=== PATIENT | male | born 1945 | race Caucasian/White ===

== ENCOUNTER 2020-11-15 08:45 | Outpatient (RCR) | payer MEDICARE, SELFPAY ==
[2020-11-08 08:08] VITALS: BP 126/81; PULSE 62; RESP 18; TEMP 36.4; BMI 41.6
--- NOTE | 2020-11-08 13:33 | HP.PCM_ITS ---
History of Present Illness Date of Service: 11/08/20 Chief Complaint: Ulceration of the left lateral foot History of Wound: This is a 75-year-old male who presents with an ulceration on the lateral aspect of his left foot. Has been present for approximately 2 weeks. However, the patient has previously had an ulcer at this site in the past. He has been treated at our facility for such. His previous ulceration was healed by conservative means. Patient is ambulatory. He experiences swelling and edema in his lower extremities bilaterally, which is worse by the end of the day. He claims to sleep in a recliner. Medical history includes chronic obstructive pulmonary disease, congestive heart failure, hypertension, chronic venous insufficiency, obesity, and epilepsy. The patient is also known to be oxygen dependent, using 3 L of oxygen per nasal cannula as a baseline, and sometimes even higher amounts. Review of the patient's past records reveals a noninvasive lower extremity arterial study in 2013 which revealed no evidence of arterial occlusive disease in the patient's lower extremities. Of note, the patient underwent bilateral lower extremity venous procedures in 2017, though he has no recollection of what procedures were performed, nor the physician who performed them. Patient has also undergone prior bilateral knee replacement surgeries, and several lumbar disc surgeries in the past. The patient claims to possess graduated compression stockings, which he has not been wearing recently. He is uncertain as to the degree of compression. [facility] Medical History (Updated 11/08/20 @ 13:[address] Brady Aguilar MD) CHF (congestive heart failure) Chronic venous insufficiency COPD (chronic obstructive pulmonary disease) Hancock phlebectatica paraplantaris Epilepsy Leg edema Leg swelling Morbid obesity with BMI of 40.0-44.9, adult Oxygen dependent Venous ulcer of ankle Home Medications B complex with C 20-folic acid [Nephrocaps Softgel] 1 mg PO DAILY 12/04/13 [History Last Taken Unknown] aspirin 325 mg PO DAILY 12/04/13 [History Last Taken Unknown] naproxen sodium [Naprelan CR] 500 mg PO Q6H PRN PRN 12/04/13 [History Last Taken Unknown] phenytoin sodium extended 600 mg PO TID 12/04/13 [History Last Taken Unknown] sertraline 100 mg PO DAILY 12/04/13 [History Last Taken Unknown] timolol maleate 1 drp EACH EYE BID 12/04/13 [History Last Taken Unknown] budesonide [Pulmicort Flexhaler 90 mcg] 1 puff INHALATION BID 03/15/17 [History Last Taken Unknown] carvedilol [Coreg] 6.25 mg PO BID 03/15/17 [History Last Taken Unknown] cholecalciferol (vitamin D3) [Vitamin D3] 1,000 unit PO DAILY 03/15/17 [History Last Taken Unknown] gemfibrozil 600 mg PO BIDAC 03/15/17 [History Last Taken Unknown] melatonin 3 mg PO PRN PRN 03/15/17 [History Last Taken Unknown] oxycodone-acetaminophen 1 tab PO PRN PRN 03/15/17 [History Last Taken Unknown] sildenafil [Viagra] 100 mg PO PRN PRN 03/15/17 [History Last Taken Unknown] spironolactone 50 mg PO DAILY 03/15/17 [History Last Taken Unknown] torsemide [Demadex] 40 mg PO DAILY 03/15/17 [History Last Taken Unknown] sertraline 100 mg PO DAILY 11/08/20 [History Last Taken Unknown] Allergy/AdvReac Type Severity Reaction Status Date / Time silver sulfadiazine Allergy Severe Rash and Verified 01/25/14 09:47 swelling adhesive Allergy Rash Verified 03/15/17 11:26 Social History Smoking Status: Former smoker Vital Signs Vital Signs Vital Signs: 11/08/20 08:08 Temperature 97.5 F L Temperature Source Temporal Pulse Rate 62 Respiratory Rate 18 Blood Pressure 126/81 H Blood Pressure Mean 96 Blood Pressure Source Monitor Blood Pressure Position Sitting Blood Pressure Location Right Arm Oxygen Delivery Method Nasal Cannula Oxygen Flow Rate (L/min) 3 Weight Weight: 270 lb Body Mass Index (BMI) 41.6 Physical Exam Const alert, oriented x3, no apparent distress and well nourished General Appearance: cooperative, comfortable and well developed Orientation / Consciousness: awake, oriented to person, oriented to place and oriented to time HEENT normocephalic and head/scalp atraumatic Head and Scalp: normal to inspection, normocephalic and atraumatic External Ear: external ears normal Eyes PERRL and EOMs intact bilaterally General Eye: normal appearance of both eyes Neck supple Resp normal respiratory effort, normal air movement, no retractions and no use of accessory muscles Effort and Inspection: able to speak in complete sentences Extremity no calf tenderness Extremity Narrative: Mild swelling and edema are noted in the patient's lower extremities bilaterally. Hancock phlebectatica is noted bilaterally near the medial malleoli bilaterally. Mild, erythematous inflammatory changes are noted at calf level bilaterally. General Extremity: Negative for clubbing or cyanosis Skin Wound Narrative: A wound is noted on the left lateral foot, just inferior to the left lateral malleolus. Dimensions are documented elsewhere. There is no sign of infection or cellulitis. There is a small amount of bioburden. Neuro oriented x3, CN's II-XII intact bilaterally and moves all extremities Sensorium / Orientation: awake, alert, oriented to person, oriented to place and oriented to time Speech: speech normal Psych Appearance: grossly normal and appropriate Attitude: calm and engaged Activity / Motor Behavior: appropriate eye contact Speech: normal speech Mood & Affect: euthymic mood Thought Process: normal thought process Debridement Note Debridement Note Post-Debridement Measurements and Additional Note: Post-Debridement Measurements/Treatment KAZ - Nurse 1 - General Ulcer Assessment Start: 11/08/20 08:08 Freq: Status: Active Protocol: REUBEN Activity Type Activity Date Activity User E-Sign Co-Sign Detail Recorded Client Recorded Date Recorded By Document 11/08/20 08:08 MW [id number] 11/08/20 08:31 MW 11/08/20 08:08 - Today's Visit Information Type of service Initial Visit Arrival Mode Ambulatory Transfer Assistance None Accompanied by self Patient Identification Verified (Name & Yes ) Patient Requires Transmission-Based No Precautions Safety Precautions NA Height and Weight Height 5 ft 7.5 in Weight 270 lb Weight in Pounds 270.0 lbs Weight Measurement Method Estimated by Patient Body Mass Index (BMI) 41.6 BMI Classification Obese BSA - Lexy 2.31 Vital Signs Temperature (97.8 F-99.1 F) 97.5 F L Temperature Source Temporal Pulse Rate (60-100) 62 Pulse Location Monitor Respiratory Rate (12-18) 18 Respiratory rate source Observation Oxygen Delivery Method Nasal Cannula O2 L/MIN 3 Blood Pressure (90/60-120/80) 126/81 H Blood Pressure Mean 96 Source Monitor Position Sitting Blood Pressure Location Right Arm Pain Scale: 0-10 Numeric Is Patient Pain Free? No Lower Extremity Assessment/ Foot Assessment/ Toe Nail Assessment Right -Polpliteal Pulses Palpable No -Popliteal Doppler Multiphasic -Posterior Tibial Palpable No -Posterior Tibial Doppler Inaudible -Dorsalis Pedis Palpable No -Extremity Color Normal -Hair Growth on Legs No -Hair Growth on Toes No -Temperature of Extremity Warm -Capillary Refill Less than 3 Seconds -Dependent Rubor No -Lipodermatosclerosis No -Other Deformity No -Prior Foot Ulcer No -Charcot Joint No -Prior Amputation No -Thick No -Discolored No -Deformed No -Improper Length & Hygeine No Left -Posterior Tibial Palpable Yes -Posterior Tibial Doppler Multiphasic -Dorsalis Pedis Palpable Yes -Dorsalis Pedis Doppler Multiphasic -Extremity Color Normal -Hair Growth on Legs No -Hair Growth on Toes No -Temperature of Extremity Warm -Capillary Refill Less than 3 Seconds -Dependent Rubor No -Lipodermatosclerosis No -Other Deformity No -Prior Foot Ulcer No -Charcot Joint No -Prior Amputation No -Thick No -Discolored No -Deformed No -Improper Length & Hygeine No Communication Assessment Preferred language Bahamian Credit Analysis Manager Required No Able to Read Yes Able to Write Yes Communication Tools None Caregiver Communication Skills No Impairment Impairment Right Hearing Abillity Hard of Hearing Left Hearing Abillity Hard of Hearing Visual Assistive Devices Glasses Teaching Assessment Preferences Verbal,Written Barriers to Learning None Readiness To Learn Excellent Willingness to Engage in Self Management High Activies Readiness to Engage in Self Management High Activities Anxiety Level Calm Cooperation Cooperative Perception Coherent Interest in Health Problem Asks Questions Education Importance Acknowledges Need Does Patient Smoke tobacco or other No substances Smoking Status Former smoker Is Patient Diabetic No Functional Assessment Recent Decline in Ability to Perform Denies Any Declines Assistive Device With Patient No Culture/Caodaism/Assistant Plant Manager Cultural/Caodaism Needs that may affect No Treatment Plan Would you allow our hospital candy department manager to No meet you for the purpose of spiritual/ emotional support? Assistant Plant Manager to contact place of gnosticism No WC - Nurse 1 - General Ulcer Measurement Start: 11/08/20 08:08 Freq: Status: Active Protocol: Activity Type Activity Date Activity User E-Sign Co-Sign Detail Recorded Client Recorded Date Recorded By Document 11/08/20 08:08 MW [id number] 11/08/20 08:31 MW 11/08/20 08:08 Wound Center Nurse 1 #2 left lateral foot -Combined with other wound No -Current Size (cm) - Length 1.4 -Current Size (cm) - Width 1.5 -Current Size (cm) - Depth 0.1 -Total Square Cm 2.10 -Photo Taken No -Epithelialization None Present -Tunneling No -Undermining/Tunneling No -Circular Undermining No -Exudate Amt Medium -Exudate Type Serosanguineous -Wound Margin Flat & Intact -Granulation Amt None Present (0 %) -Granulation Quality N/A -Slough/Fibrin Yes -Necrosis Amt Large (67-100%) -Necrotic Tissue Type Adherent Slough -Structure Exposed N/A -Texture (Patti-wound Skin Appearance) Assessed, Localized Edema ,Scarring -Moisture (Patti-wound Skin Appearance) Assessed, Maceration -Color (Patti-wound Skin Appearance) Assessed, Hemosiderin Staining -Temperature (Patti-wound Skin No Abnormality Appearance) (Pt Warm) -Tenderness on Palpation (Patti-wound No Skin Appearance) -Ulcer Cleansing Rinsed/ Irrigated with Saline -Foul Odor after Cleansing No -Anesthetic Used 4% Lidocaine Solution Lower Limb Edema Present Yes Right Calf (cm) 44.0 Right Ankle (cm) 26.0 Left Calf (cm) 44.5 Left Ankle (cm) 24.5 WC - Nurse 2 - General Ulcer CM Notes Start: 11/08/20 08:08 Freq: Status: Active Protocol: Activity Type Activity Date Activity User E-Sign Co-Sign Detail Recorded Client Recorded Date Recorded By Document 11/08/20 10:05 [email or web address] [id number] 11/08/20 10:07 MAHENDRA 11/08/20 10:05 Wound Center Nurse 2 #2 left lateral foot -Time 09:00 -Correct Patient Yes -Correct Side, Site, Position Yes -Correct Procedure Yes -Procedure Performed Yes -Type of Procedure Debridement -Clinical Debridement Subcutaneous -Tissue Removed Subcutaneous -Post Debridement (cm) - Length 1.4 -Post Debridement (cm) - Width 1.5 -Post Debridement (cm) - Depth 0.1 -Total Square (Post) (cm) 2.10 -Area of Debridement (cm) - Length 1.4 -Area of Debridement (cm) - Width 1.5 -Total Square (Area) (cm) 2.10 -Tunneling No -Undermining/Tunneling No -Circular Undermining No -Wound/Ulcer Outcome Not Healed -Ulcer Cleansing Rinsed/ Irrigated with Saline -Foul Odor after Cleansing No -Bioengineered Tissue No -Debridement - Subq, 1st 20sq cm Yes Pain Scale: 0-10 Numeric Is Patient Pain Free? Yes WC - Nurse 3 - General Ulcer D/C NN Start: 11/08/20 08:08 Freq: Status: Active Protocol: Activity Type Activity Date Activity User E-Sign Co-Sign Detail Recorded Client Recorded Date Recorded By Document 11/08/20 09:17 LIZZ [id number] 11/08/20 09:17 LIZZ 11/08/20 09:17 Wound Care Nurse 3 #2 left lateral foot -Ulcer Cleansing Rinsed/ Irrigated with Saline -Primary Dressing Applied C Hydrogel ($) -Primary Dressing Covered/Secured with Dry Gauze, Secured with Tape WC - Visit Discharge Discharge Condition Stable Ambulatory Status Ambulatory Transportation Private Auto Accompanied by self Wound debrided: Left lateral malleolus Laterality: Left Type of Debridement: Excisional debridement Anesthesia Used: 5% Lidocaine Gel Depth: Down to and including healthy tissue and in the subcutaneous layer Percentage of wound debrided: 100 Instrument Used: 5mm curette Tissue Removed: Bioburden Severity: Fat Layer Exposed Amount of bleeding with debridement: Mild Bleeding Controlled with: Compression and gauze Patient tolerated procedure: Patient tolerated procedure well Assessment/Plan Assessment/Plan (1) Venous ulcer of ankle: CODE(S): I83.003 - Varicose veins of unspecified lower extremity with ulcer of ankle; L97.309 - Non-pressure chronic ulcer of unspecified ankle with unspecified severity (2) Chronic venous insufficiency: CODE(S): I87.2 - Venous insufficiency (chronic) (peripheral) (3) Hancock phlebectatica paraplantaris: CODE(S): R09.89 - Other specified symptoms and signs involving the circulatory and respiratory systems (4) Leg swelling: CODE(S): M79.89 - Other specified soft tissue disorders (5) Leg edema: CODE(S): R60.0 - Localized edema (6) COPD (chronic obstructive pulmonary disease): CODE(S): J44.9 - Chronic obstructive pulmonary disease, unspecified (7) Oxygen dependent: CODE(S): Z99.81 - Dependence on supplemental oxygen (8) CHF (congestive heart failure): CODE(S): I50.9 - Heart failure, unspecified (9) Epilepsy: CODE(S): G40.909 - Epilepsy, unspecified, not intractable, without status epilepticus (10) Morbid obesity with BMI of 40.0-44.9, adult: CODE(S): E66.01 - Morbid (severe) obesity due to excess calories; Z68.41 - Body mass index [BMI]40.0-44.9, adult PLAN: This is a 75-year-old male who presents with an ulceration on the lateral aspect of his left foot. He has had prior ulcerations at the site in the past. They are thought to be related to the patient's chronic venous disease. Patient experiences swelling and edema in both lower extremities. He sleeps in a recliner. We are to implement conservative treatment measures relative to the patient's chronic venous disease and lower extremity swelling and edema. Patient has been advised to elevate his lower extremities as much as possible. Elevation is to be to heart level, or higher. This is to be achieved as much as possible. The patient has been encouraged to sleep on a flat mattress at night. He has been encouraged to elevate his lower extremities as much as possible even during daytime hours. Activity has been encouraged. Prolonged idle sitting and standing has been discouraged. Weight loss has been recommended. Patient claims to own graduated compression stockings, though has not been wearing them recently. He is also unaware of the degree of compression. He has been encouraged to bring the graduated compression stockings with him to subsequent appointments, as well as the associated packaging. We will attempt to ascertain the degree of compression, and prescribe appropriate compression if necessary. We are to use collagen hydrogel topically to the ulceration on the left lateral foot. We will also obtain a noninvasive lower extremity arterial study and a venous duplex examination on an outpatient basis in the near future. Patient is to return in 1 week for reevaluation. The patient is also been advised to assure that his shoes are fitted properly, and that there is no pressure or friction from his shoes that may be contributing to the development of ulcerations on his foot. Total time: 65 minutes
[2020-11-15 08:12] VITALS: BP 139/66; PULSE 63; TEMP 36.1; BMI 41.6
--- NOTE | 2020-11-15 08:34 | HP.PCM_ITS ---
History of Present Illness Date of Service: 11/15/20 Chief Complaint: Ulceration of the left lateral foot History of Wound: This is a 75-year-old male who presented with an ulceration on the lateral aspect of his left foot, just inferior to his left lateral malleolus. Had been present for approximately 2 weeks. However, the patient has previously had an ulcer at this site in the past. He has been treated at our facility for such. His previous ulceration was healed by conservative means. Patient is ambulatory. He experiences swelling and edema in his lower extremities bilaterally, which is worse by the end of the day. He claims to sleep in a recliner. Medical history includes chronic obstructive pulmonary disease, congestive heart failure, hypertension, chronic venous insufficiency, obesity, and epilepsy. The patient is also known to be oxygen dependent, using 3 L of oxygen per nasal cannula as a baseline, and sometimes even higher amounts. Review of the patient's past records reveals a noninvasive lower extremity arterial study in 2013 which revealed no evidence of arterial occlusive disease in the patient's lower extremities. Of note, the patient underwent bilateral lower extremity venous procedures in 2017, though he has no recollection of what procedures were performed, nor the physician who performed them. Patient has also undergone prior bilateral knee replacement surgeries, and several lumbar disc surgeries in the past. The patient claims to possess graduated compression stockings, which he has not been wearing recently. He is uncertain as to the degree of compression. [facility] Medical History (Updated 11/15/20 @ 08:[address] Brady Aguilar MD) CHF (congestive heart failure) Chronic venous insufficiency COPD (chronic obstructive pulmonary disease) Hancock phlebectatica paraplantaris Epilepsy Leg edema Leg swelling Morbid obesity with BMI of 40.0-44.9, adult Oxygen dependent Venous ulcer of ankle Home Medications B complex with C 20-folic acid [Nephrocaps Softgel] 1 mg PO DAILY 12/04/13 [History Last Taken Unknown] aspirin 325 mg PO DAILY 12/04/13 [History Last Taken Unknown] naproxen sodium [Naprelan CR] 500 mg PO Q6H PRN PRN 12/04/13 [History Last Taken Unknown] phenytoin sodium extended 600 mg PO TID 12/04/13 [History Last Taken Unknown] sertraline 100 mg PO DAILY 12/04/13 [History Last Taken Unknown] timolol maleate 1 drp EACH EYE BID 12/04/13 [History Last Taken Unknown] budesonide [Pulmicort Flexhaler 90 mcg] 1 puff INHALATION BID 03/15/17 [History Last Taken Unknown] carvedilol [Coreg] 6.25 mg PO BID 03/15/17 [History Last Taken Unknown] cholecalciferol (vitamin D3) [Vitamin D3] 1,000 unit PO DAILY 03/15/17 [History Last Taken Unknown] gemfibrozil 600 mg PO BIDAC 03/15/17 [History Last Taken Unknown] melatonin 3 mg PO PRN PRN 03/15/17 [History Last Taken Unknown] oxycodone-acetaminophen 1 tab PO PRN PRN 03/15/17 [History Last Taken Unknown] sildenafil [Viagra] 100 mg PO PRN PRN 03/15/17 [History Last Taken Unknown] spironolactone 50 mg PO DAILY 03/15/17 [History Last Taken Unknown] torsemide [Demadex] 40 mg PO DAILY 03/15/17 [History Last Taken Unknown] sertraline 100 mg PO DAILY 11/08/20 [History Last Taken Unknown] Allergy/AdvReac Type Severity Reaction Status Date / Time silver sulfadiazine Allergy Severe Rash and Verified 01/25/14 09:47 swelling adhesive Allergy Rash Verified 03/15/17 11:26 Social History Smoking Status: Former smoker Vital Signs Vital Signs Vital Signs: 11/15/20 08:12 Temperature 97.0 F L Temperature Source Temporal Pulse Rate 63 Blood Pressure 139/66 H Blood Pressure Mean 90 Blood Pressure Source Monitor Blood Pressure Position Semi-Fowlers Blood Pressure Location Right Arm Weight Weight: 270 lb Body Mass Index (BMI) 41.6 Physical Exam Const alert, oriented x3, no apparent distress and well nourished Constitutional Narrative: The patient is morbidly obese. General Appearance: cooperative, comfortable and well developed Orientation / Consciousness: awake, oriented to person, oriented to place and oriented to time Nutritional Appearance: morbidly obese HEENT normocephalic and head/scalp atraumatic Head and Scalp: normal to inspection, normocephalic and atraumatic External Ear: external ears normal Eyes PERRL and EOMs intact bilaterally General Eye: normal appearance of both eyes Resp normal respiratory effort, normal air movement, no retractions and no use of accessory muscles Effort and Inspection: able to speak in complete sentences Extremity no calf tenderness Extremity Narrative: Slight swelling and edema noted in the patient's left lower extremity. Hancock phlebectatica is noted bilaterally near the medial malleoli. General Extremity: Negative for clubbing or cyanosis Skin Wound Narrative: The ulceration inferior to the left lateral malleolus persists, but appears smaller in size. It is quite superficial. There is no sign of infection or cellulitis. There is a small amount of bioburden. Dimensions are documented elsewhere. Neuro CN's II-XII intact bilaterally Speech: speech normal Psych mental status grossly normal Appearance: grossly normal and appropriate Attitude: calm and engaged Activity / Motor Behavior: appropriate eye contact Speech: normal speech Mood & Affect: euthymic mood Thought Process: normal thought process Debridement Note Debridement Note Post-Debridement Measurements and Additional Note: Post-Debridement Measurements/Treatment - Nurse 1 - General Ulcer Assessment Start: 11/08/20 08:08 Freq: Status: Active Protocol: WC.LOWEXT Activity Type Activity Date Activity User E-Sign Co-Sign Detail Recorded Client Recorded Date Recorded By Document 11/08/20 08:08 [id number] 11/08/20 08:31 Document 11/15/20 08:12 KR [id number] 11/15/20 08:17 KR 11/08/20 11/15/20 08:08 08:12 - Today's Visit Information Type of service Initial Visit Follow-up Visit (Physician/PROVIDER RELATIONS ADVOCATE ) Arrival Mode Ambulatory Ambulatory,Cane Transfer Assistance None Accompanied by self Patient Identification Verified (Name & Yes Yes ) Patient Requires Transmission-Based No Precautions Safety Precautions NA Height and Weight Height 5 ft 7.5 in Weight 270 lb Weight in Pounds 270.0 lbs Weight Measurement Method Estimated by Patient Body Mass Index (BMI) 41.6 41.6 BMI Classification Obese Obese BSA - Lexy 2.31 Vital Signs Temperature (97.8 F-99.1 F) 97.5 F L 97.0 F L Temperature Source Temporal Temporal Pulse Rate (60-100) 62 63 Pulse Location Monitor Monitor Respiratory Rate (12-18) 18 Respiratory rate source Observation Oxygen Delivery Method Nasal Cannula O2 L/MIN 3 Blood Pressure (90/60-120/80) 126/81 H 139/66 H Blood Pressure Mean 96 90 Source Monitor Monitor Position Sitting Semi-Fowlers Blood Pressure Location Right Arm Right Arm History Since Last Visit- (Skip if this is Patient's initial visit) Have you changed medications since your No last visit? Any new allergies or adverse reactions No Had a fall/change in ADL's that may No increase risk of falls Signs or symptoms of abuse and/or No neglect since last visit Have you been in the hospital since your No last visit? Has dressing in place as prescribed Yes Has compression in place as prescribed N/A Has offloadiing in place as prescribed N/A Experienced any changes in pain level or No management Left Footwear Regular Shoe Right Footwear Regular Shoe Pain Scale: 0-10 Numeric Is Patient Pain Free? No Yes Lower Extremity Assessment/ Foot Assessment/ Toe Nail Assessment Right -Polpliteal Pulses Palpable No -Popliteal Doppler Multiphasic -Posterior Tibial Palpable No -Posterior Tibial Doppler Inaudible -Dorsalis Pedis Palpable No -Extremity Color Normal -Hair Growth on Legs No -Hair Growth on Toes No -Temperature of Extremity Warm -Capillary Refill Less than 3 Seconds -Dependent Rubor No -Lipodermatosclerosis No -Other Deformity No -Prior Foot Ulcer No -Charcot Joint No -Prior Amputation No -Thick No -Discolored No -Deformed No -Improper Length & Hygeine No Left -Posterior Tibial Palpable Yes -Posterior Tibial Doppler Multiphasic -Dorsalis Pedis Palpable Yes -Dorsalis Pedis Doppler Multiphasic -Extremity Color Normal -Hair Growth on Legs No -Hair Growth on Toes No -Temperature of Extremity Warm -Capillary Refill Less than 3 Seconds -Dependent Rubor No -Lipodermatosclerosis No -Other Deformity No -Prior Foot Ulcer No -Charcot Joint No -Prior Amputation No -Thick No -Discolored No -Deformed No -Improper Length & Hygeine No Communication Assessment Preferred language [place] [employer] Required No Able to Read Yes Able to Write Yes Communication Tools None Caregiver Communication Skills No Impairment Impairment Right Hearing Abillity Hard of Hearing Left Hearing Abillity Hard of Hearing Visual Assistive Devices Glasses Teaching Assessment Preferences Verbal,Written Barriers to Learning None Readiness To Learn Excellent Willingness to Engage in Self Management High Activies Readiness to Engage in Self Management High Activities Anxiety Level Calm Cooperation Cooperative Perception Coherent Interest in Health Problem Asks Questions Education Importance Acknowledges Need Does Patient Smoke tobacco or other No substances Smoking Status Former smoker Is Patient Diabetic No Functional Assessment Recent Decline in Ability to Perform Denies Any Declines Assistive Device With Patient No Culture/Yazidi/Compression Molding Machine Tender Cultural/Yazidi Needs that may affect No Treatment Plan Would you allow our hospital fire control assistant to No meet you for the purpose of spiritual/ emotional support? Compression Molding Machine Tender to contact place of zoroastrianism No WC - Nurse 1 - General Ulcer Measurement Start: 11/08/20 08:08 Freq: Status: Active Protocol: Activity Type Activity Date Activity User E-Sign Co-Sign Detail Recorded Client Recorded Date Recorded By Document 11/08/20 08:08 MW [id number] 11/08/20 08:31 MW Document 11/15/20 08:12 KR [id number] 11/15/20 08:17 KR 11/08/20 11/15/20 08:08 08:12 Wound Center Nurse 1 #6 left lateral foot -Combined with other wound No -Current Size (cm) - Length 1.4 0.2 -Current Size (cm) - Width 1.5 0.2 -Current Size (cm) - Depth 0.1 0.1 -Total Square Cm 2.10 0.04 -Photo Taken No -Epithelialization None Present -Tunneling No -Undermining/Tunneling No -Circular Undermining No -Exudate Amt Medium Small -Exudate Type Serosanguineous Yellow/Green -Wound Margin Flat & Intact Distinct, Outline Attached -Granulation Amt None Present (0 None Present (0 %) %) -Granulation Quality N/A -Slough/Fibrin Yes -Necrosis Amt Large (67-100%) Small (1-33%) -Necrotic Tissue Type Adherent Slough Adherent Slough -Structure Exposed N/A -Texture (Patti-wound Skin Appearance) Assessed, Assessed, Localized Edema Scarring ,Scarring -Moisture (Patti-wound Skin Appearance) Assessed, Assessed Maceration -Color (Patti-wound Skin Appearance) Assessed, No Abnormality, Hemosiderin Assessed Staining -Temperature (Patti-wound Skin No Abnormality No Abnormality Appearance) (Pt Warm) (Pt Warm) -Tenderness on Palpation (Patti-wound No No Skin Appearance) -Ulcer Cleansing Rinsed/ Rinsed/ Irrigated with Irrigated with Saline Saline -Foul Odor after Cleansing No No -Anesthetic Used 4% Lidocaine 5% Lidocaine Solution Gel Lower Limb Edema Present Yes Right Calf (cm) 44.0 Right Ankle (cm) 26.0 Left Calf (cm) 44.5 Left Ankle (cm) 24.5 KAZ - Nurse 2 - General Ulcer CM Notes Start: 11/08/20 08:08 Freq: Status: Active Protocol: Activity Type Activity Date Activity User E-Sign Co-Sign Detail Recorded Client Recorded Date Recorded By Document 11/08/20 10:05 MAHENDRA [id number] 11/08/20 10:07 MAHENDRA 11/08/20 10:05 Wound Center Nurse 2 -Time 09:00 -Correct Patient Yes -Correct Side, Site, Position Yes -Correct Procedure Yes -Procedure Performed Yes -Type of Procedure Debridement -Clinical Debridement Subcutaneous -Tissue Removed Subcutaneous -Post Debridement (cm) - Length 1.4 -Post Debridement (cm) - Width 1.5 -Post Debridement (cm) - Depth 0.1 -Total Square (Post) (cm) 2.10 -Area of Debridement (cm) - Length 1.4 -Area of Debridement (cm) - Width 1.5 -Total Square (Area) (cm) 2.10 -Tunneling No -Undermining/Tunneling No -Circular Undermining No -Wound/Ulcer Outcome Not Healed -Ulcer Cleansing Rinsed/ Irrigated with Saline -Foul Odor after Cleansing No -Bioengineered Tissue No -Debridement - Subq, 1st 20sq cm Yes Pain Scale: 0-10 Numeric Is Patient Pain Free? Yes WC - Nurse 3 - General Ulcer D/C NN Start: 11/08/20 08:08 Freq: Status: Active Protocol: Activity Type Activity Date Activity User E-Sign Co-Sign Detail Recorded Client Recorded Date Recorded By Document 11/08/20 09:17 LIZZ [id number] 11/08/20 09:17 LIZZ 11/08/20 09:17 Wound Care Nurse 3 #6 left lateral foot -Ulcer Cleansing Rinsed/ Irrigated with Saline -Primary Dressing Applied C Hydrogel ($) -Primary Dressing Covered/Secured with Dry Gauze, Secured with Tape WC - Visit Discharge Discharge Condition Stable Ambulatory Status Ambulatory Transportation Private Auto Accompanied by self Wound debrided: Left lateral malleolus Laterality: Left Type of Debridement: Excisional debridement Anesthesia Used: 5% Lidocaine Gel Depth: Down to and including healthy tissue and in the subcutaneous layer Percentage of wound debrided: 100 Instrument Used: 5mm curette Tissue Removed: Bioburden Severity: Fat Layer Exposed Amount of bleeding with debridement: Mild Bleeding Controlled with: Compression and gauze Patient tolerated procedure: Patient tolerated procedure well Assessment/Plan Assessment/Plan (1) Hancock phlebectatica paraplantaris: CODE(S): R09.89 - Other specified symptoms and signs involving the circ ulatory and respiratory systems (2) Morbid obesity with BMI of 40.0-44.9, adult: CODE(S): E66.01 - Morbid (severe) obesity due to excess calories; Z68.41 - Body mass index [BMI]40.0-44.9, adult (3) Venous ulcer of ankle: CODE(S): I83.003 - Varicose veins of unspecified lower extremity with ulcer of ankle; L97.309 - Non-pressure chronic ulcer of unspecified ankle with unspecified severity QUALIFIERS: Varicose vein presence: with varicose veins Laterality: left Non-pressure ulcer stage: with fat layer exposed Qualified Code(s): I83.023 - Varicose veins of left lower extremity with ulcer of ankle; L97.322 - Non-pressure chronic ulcer of left ankle with fat layer exposed (4) Epilepsy: CODE(S): G40.909 - Epilepsy, unspecified, not intractable, without status epilepticus (5) CHF (congestive heart failure): CODE(S): I50.9 - Heart failure, unspecified (6) Oxygen dependent: CODE(S): Z99.81 - Dependence on supplemental oxygen (7) COPD (chronic obstructive pulmonary disease): CODE(S): J44.9 - Chronic obstructive pulmonary disease, unspecified (8) Leg edema: CODE(S): R60.0 - Localized edema (9) Leg swelling: CODE(S): M79.89 - Other specified soft tissue disorders (10) Chronic venous insufficiency: CODE(S): I87.2 - Venous insufficiency (chronic) (peripheral) (11) Peripheral vascular disease of lower extremity with ulceration: CODE(S): I73.9 - Peripheral vascular disease, unspecified; L97.909 - Non- pressure chronic ulcer of unspecified part of unspecified lower leg with unspecified severity (12) Peripheral vascular disease of lower extremity with ulceration: CODE(S): I73.9 - Peripheral vascular disease, unspecified; L97.909 - Non-pressure chronic ulcer of unspecified part of unspecified lower leg with unspecified severity (13) Atherosclerotic peripheral vascular disease with ulceration: CODE(S): I70.209 - Unspecified atherosclerosis of [place] arteries of extremities, unspecified extremity; L98.499 - Non-pressure chronic ulcer of skin of other sites with unspecified severity QUALIFIERS: Peripheral atherosclerosis location: lower extremity (14) Infected wound: CODE(S): T14.8XXA - Other injury of unspecified body region, initial encounter; L08.9 - Local infection of the skin and subcutaneous tissue, unspecified (15) Peripheral vascular occlusive disease: CODE(S): I73.9 - Peripheral vascular disease, unspecified PLAN: This is a 75-year-old male who presented with an ulceration on the lateral aspect of his left foot/ankle. He has had prior ulcerations at the site in the past. They are thought to be related to the patient's chronic venous disease. Patient experiences swelling and edema in both lower extremities. He sleeps in a recliner. We are to implement conservative treatment measures relative to the patient's chronic venous disease and lower extremity swelling and edema. Patient has been advised to elevate his lower extremities as much as possible. Elevation is to be to heart level, or higher. This is to be achieved as much as possible. The patient has been encouraged to sleep on a flat mattress at night. He has been encouraged to elevate his lower extremities as much as possible even during daytime hours. Activity has been encouraged. Prolonged idle sitting and standing has been discouraged. Weight loss has been recommended. Possesses graduated compression stockings, and has brought the packaging with him to his visit today. It is noted that the stockings are of 30 to 40 mmHg compression. This is thought to exceed that which is necessary, and will hinder his compliance. Therefore, a prescription has been provided for graduated compression stockings of 20 to 30 mmHg compression, knee-high length. The patient has been encouraged to obtain the new pair of stockings, and to wear daily. We are to continue the use of collagen hydrogel topically to the ulceration on the left lateral foot. We will also obtain a noninvasive lower e xtremity arterial study and a venous duplex examination on an outpatient basis in the near future. These vascular studies had been scheduled for yesterday, but the patient failed to appear for his appointment. These will be rescheduled. Patient is to return in 1 week for reevaluation. The patient is also been advised to assure that his shoes are fitted properly, and that there is no pressure or friction from his shoes that may be contributing to the development of ulcerations on his foot. Total time: 29 minutes
== END 2020-11-16 23:59 ==
LOC: WC 08:45
PROVIDERS: Visit Provider Surgery
DX: I83.023 Varicose veins of left lower extremity with ulcer of ankle (principal); L97.322 Non-pressure chronic ulcer of left ankle with fat layer exposed; I73.9 Peripheral vascular disease, unspecified; M79.89 Other specified soft tissue disorders; R09.89 Other specified symptoms and signs involving the circulatory and respiratory systems; I11.0 Hypertensive heart disease with heart failure; I50.9 Heart failure, unspecified; G40.909 Epilepsy, unspecified, not intractable, without status epilepticus; J44.9 Chronic obstructive pulmonary disease, unspecified; E66.01 Morbid (severe) obesity due to excess calories; Z68.41 Body mass index [BMI] 40.0-44.9, adult; Z99.81 Dependence on supplemental oxygen; Z79.82 Long term (current) use of aspirin; Z79.51 Long term (current) use of inhaled steroids; Z79.899 Other long term (current) drug therapy; Z96.653 Presence of artificial knee joint, bilateral; Z87.891 Personal history of nicotine dependence
CPT/HCPCS: 11042; 99213; G0463

== ENCOUNTER 2020-12-13 08:15 | Outpatient (RCR) | payer MEDICARE, SELFPAY ==
[2020-11-17 00:35] VITALS: BP 139/66; PULSE 63; RESP 18; TEMP 36.1
--- NOTE | 2020-11-18 12:19 | VDLE_ITS ---
Reason For Study: Non healing wound RIGHT LEFT CFV is compressible, spontaneous, phasic, CFV is compressible, spontaneous, phasic, competent and demonstrates normal competent, and demonstrates normal augmentation. augmentation. FV is compressible, spontaneous, phasic, FV is compressible, spontaneous, phasic, competent and demonstrates normal competent and demonstrates normal augmentation. augmentation. POP V is compressible, spontaneous, phasic, POP V is compressible, spontaneous, phasic, competent and demonstrates normal competent and demonstrates normal augmentation. augmentation. T/P Trunk is compressible. T/P Trunk is compressible. PTV is compressible. PTV is compressible. RT PerV is compressible. LT PerV is compressible. SFJ is competent and measures 0.58cm x 0.56 SFJ is competent and measures 0.59cm x 0.61 cm. cm. GSV at knee measures 0.43cm x 0.46 cm. GSV at knee measures 0.34cm x 0.30 cm. GSV INCOMPETENT throughout for greater than GSV below knee is INCOMPETENT for greater 0.5 seconds. than 0.5 seconds. SSV proximal calf is INCOMPETENT for greater SSV proximal calf is competent and measures than 0.5 seconds and measures 0.35cm x 0.35 0.11cm x 0.14 cm. cm. ASV proximal thigh is INCOMPETENT for greater ASV proximal thigh is INCOMPETENT for greater than 0.5 seconds and measures 0.53cm x 0.58 than 0.5 seconds and measures 0.44cm x 0.46 cm. cm. Lt GSV in the thigh is absent s/p vein Rt GSV prox thigh is absent s/p vein stripping, GSV is patent starting at the knee stripping, GSV is patent starting at mid thigh. Lt SSV has thickened vein stewart and is very small. VL/Venous Duplex US - Abel Extrem Interpretation Summary Deep veins of the lower extremities are bilaterally patent and compressible seg mentally. There is no evidence of deep vein thrombosis on either side. Valvular competence appears in tact within the proximal deep venous systems bilaterally. Sapheno-femoral junctions are bilater ally competent . The right great saphenous vein has been stripped in the proximal thigh, but is reyes nt and incompetent from the mid-thigh to the ankle. The left great saphenous vein has been strippe d in the thigh, but is patent and incompetent below the knee. The right small saphenous vein is pat ent and incompetent. The left small saphenous vein is small in caliber with thickened stewart and is c ompetent. The accessory saphenous vein in the right proximal thigh is incompetent. The access ory saphenous vein in the left proximal thigh is incompetent. Ordering Physician: Brady Aguilar Referring Physician: Alicia Adkins Performed By: Cecille Mcmillan, ДМИТРИЙ, RVT
--- NOTE | 2020-11-18 12:20 | ART_ITS ---
Reason For Study: Non healing wound Procedure A bilateral lower extremity continuous wave Doppler with analog waveform analysis,segmental pressures,and ankle brachial indexes without exercise. Left Segmental Pressures Left brachial= 115mmHg. Left posterior tibial artery = 131mmHg. Left dorsalis pedis artery = 142mmHg. Right Segmental Pressures Right brachial= 129mmHg. Right posterior tibial artery = 139mmHg. Right dorsalis pedis artery = 137mmHg. Indices The right ankle brachial index by the posterior tibial artery is 1.08. The right ankle brachial index by the dorsalis pedis is 1.06. The left ankle brachial index by the posterior tibial artery is 1.02. The left ankle brachial index by the dorsalis pedis is 1.10. VL/Lower Ext Art Exam w/o Exercis Interpretation Summary Triphasic Doppler waveforms are noted at ankle level bilaterally. Pulse-volume recordings appear satisfactory bilaterally. Resting ankle-brachial indices are normal bilaterally . There is no evidence of significant arterial occlusive disease in the lower ext remities bilaterally. Ordering Physician: Brady Aguilar Referring Physician: Brady Aguilar Performed By: Cecille Mcmillan RDCS/RVT
[2020-11-22 08:33] VITALS: BP 129/65; PULSE 55; RESP 20; TEMP 36.5; BMI 41.6
--- NOTE | 2020-11-22 09:15 | HP.PCM_ITS ---
History of Present Illness Date of Service: 11/22/20 Chief Complaint: Ulceration of the left lateral foot History of Wound: This is a 75-year-old male who presented with an ulceration on the lateral aspect of his left foot, just inferior to his left lateral malleolus. Had been present for approximately 2 weeks. However, the patient has previously had an ulcer at this site in the past. He has been treated at our facility for such. His previous ulceration was healed by conservative means. Patient is ambulatory. He experiences swelling and edema in his lower extremities bilaterally, which is worse by the end of the day. He claims to sleep in a recliner. Medical history includes chronic obstructive pulmonary disease, congestive heart failure, hypertension, chronic venous insufficiency, obesity, and epilepsy. The patient is also known to be oxygen dependent, using 3 L of oxygen per nasal cannula as a baseline, and sometimes even higher amounts. Review of the patient's past records reveals a noninvasive lower extremity arterial study in 2013 which revealed no evidence of arterial occlusive disease in the patient's lower extremities. Of note, the patient underwent bilateral lower extremity venous procedures in 2017, though he has no recollection of what procedures were performed, nor the physician who performed them. Patient has also undergone prior bilateral knee replacement surgeries, and several lumbar disc surgeries in the past. The patient claims to possess graduated compression stockings, which he has not been wearing recently. He is uncertain as to the degree of compression. [facility] Medical History (Updated 11/15/20 @ 08:[address] Brady Aguilar MD) CHF (congestive heart failure) Chronic venous insufficiency COPD (chronic obstructive pulmonary disease) Hancock phlebectatica paraplantaris Epilepsy Leg edema Leg swelling Morbid obesity with BMI of 40.0-44.9, adult Oxygen dependent Venous ulcer of ankle Home Medications B complex with C 20-folic acid [Nephrocaps Softgel] 1 mg PO DAILY 12/04/13 [History Last Taken Unknown] aspirin 325 mg PO DAILY 12/04/13 [History Last Taken Unknown] naproxen sodium [Naprelan CR] 500 mg PO Q6H PRN PRN 12/04/13 [History Last Taken Unknown] phenytoin sodium extended 600 mg PO TID 12/04/13 [History Last Taken Unknown] sertraline 100 mg PO DAILY 12/04/13 [History Last Taken Unknown] timolol maleate 1 drp EACH EYE BID 12/04/13 [History Last Taken Unknown] budesonide [Pulmicort Flexhaler 90 mcg] 1 puff INHALATION BID 03/15/17 [History Last Taken Unknown] carvedilol [Coreg] 6.25 mg PO BID 03/15/17 [History Last Taken Unknown] cholecalciferol (vitamin D3) [Vitamin D3] 1,000 unit PO DAILY 03/15/17 [History Last Taken Unknown] gemfibrozil 600 mg PO BIDAC 03/15/17 [History Last Taken Unknown] melatonin 3 mg PO PRN PRN 03/15/17 [History Last Taken Unknown] oxycodone-acetaminophen 1 tab PO PRN PRN 03/15/17 [History Last Taken Unknown] sildenafil [Viagra] 100 mg PO PRN PRN 03/15/17 [History Last Taken Unknown] spironolactone 50 mg PO DAILY 03/15/17 [History Last Taken Unknown] torsemide [Demadex] 40 mg PO DAILY 03/15/17 [History Last Taken Unknown] sertraline 100 mg PO DAILY 11/08/20 [History Last Taken Unknown] Allergy/AdvReac Type Severity Reaction Status Date / Time silver sulfadiazine Allergy Severe Rash and Verified 01/25/14 09:47 swelling adhesive Allergy Rash Verified 03/15/17 11:26 Social History Smoking Status: Former smoker Vital Signs Vital Signs Vital Signs: 11/22/20 08:33 Temperature 97.7 F L Temperature Source Temporal Pulse Rate 55 L Respiratory Rate 20 H Blood Pressure 129/65 H Blood Pressure Mean 86 Blood Pressure Source Monitor Blood Pressure Position Sitting Blood Pressure Location Left Arm Oxygen Delivery Method Nasal Cannula Oxygen Flow Rate (L/min) 3 Weight Weight: 270 lb Body Mass Index (BMI) 41.6 Physical Exam Const alert, oriented x3, no apparent distress and well nourished General Appearance: cooperative, comfortable, well kempt and well developed Orientation / Consciousness: awake, oriented to person, oriented to place and oriented to time Nutritional Appearance: obese HEENT normocephalic Head and Scalp: normal to inspection, normocephalic and atraumatic External Ear: external ears normal Eyes PERRL and EOMs intact bilaterally General Eye: normal appearance of both eyes Resp normal respiratory effort, normal air movement, no retractions and no use of accessory muscles Effort and Inspection: able to speak in complete sentences Extremity no clubbing, cyanosis or edema and no calf tenderness Extremity Narrative: Hancock phlebectatica is noted near the left medial malleolus General Extremity: Negative for clubbing or cyanosis Skin Wound Narrative: The ulceration persists just inferior to the left lateral malleolus. Dimensions are documented elsewhere. It is little changed in size or appearance. There are islands of epithelialization. There is no sign of infection or cellulitis. There is a small amount of bioburden. Neuro oriented x3, CN's II-XII intact bilaterally and moves all extremities Psych mental status grossly normal Appearance: grossly normal and appropriate Attitude: calm and engaged Activity / Motor Behavior: appropriate eye contact Speech: normal speech Mood & Affect: euthymic mood Thought Process: normal thought process Debridement Note Debridement Note Post-Debridement Measurements and Additional Note: Post-Debridement Measurements/Treatment - Nurse 1 - General Ulcer Assessment Start: 11/22/20 08:33 Freq: Status: Active Protocol: [email or web address] Activity Type Activity Date Activity User E-Sign Co-Sign Detail Recorded Client Recorded Date Recorded By Document 11/22/20 08:33 [id number] 11/22/20 08:42 11/22/20 08:33 - Today's Visit Information Type of service Follow-up Visit (Physician/MANAGER TRANSPORTATION PLANNING ) Arrival Mode Ambulatory,Cane Accompanied by self Patient Identification Verified (Name & Yes ) Patient Requires Transmission-Based No Precautions Safety Precautions NA Height and Weight Body Mass Index (BMI) 41.6 BMI Classification Obese Vital Signs Temperature (97.8 F-99.1 F) 97.7 F L Temperature Source Temporal Pulse Rate (60-100) 55 L Pulse Location Monitor Respiratory Rate (12-18) 20 H Respiratory rate source Observation Oxygen Delivery Method Nasal Cannula O2 L/MIN 3 Blood Pressure (90/60-120/80) 129/65 H Blood Pressure Mean 86 Source Monitor Position Sitting Blood Pressure Location Left Arm History Since Last Visit- (Skip if this is Patient's initial visit) Have you changed medications since your No last visit? Any new allergies or adverse reactions No Had a fall/change in ADL's that may No increase risk of falls Signs or symptoms of abuse and/or No neglect since last visit Have you been in the hospital since your No last visit? Has dressing in place as prescribed Yes Has compression in place as prescribed Yes Has offloadiing in place as prescribed N/A Experienced any changes in pain level or No management Left Footwear Regular Shoe Right Footwear Regular Shoe Pain Scale: 0-10 Numeric Is Patient Pain Free? Yes - Nurse 1 - General Ulcer Measurement Start: 11/22/20 08:33 Freq: Status: Active Protocol: Activity Type Activity Date Activity User E-Sign Co-Sign Detail Recorded Client Recorded Date Recorded By Document 11/22/20 08:33 MW [id number] 11/22/20 08:42 MW 11/22/20 08:33 Wound Center Nurse 1 #6 left lateral foot -Combined with other wound No -Current Size (cm) - Length 1.0 -Current Size (cm) - Width 1.0 -Current Size (cm) - Depth 0.1 -Total Square Cm 1.00 -Photo Taken No -Epithelialization None Present -Tunneling No -Undermining/Tunneling No -Circular Undermining No -Exudate Amt Small -Exudate Type Serosanguineous -Wound Margin Flat & Intact -Granulation Amt None Present (0 %) -Granulation Quality N/A -Slough/Fibrin Yes -Necrosis Amt Large (67-100%) -Necrotic Tissue Type Adherent Slough -Structure Exposed N/A -Texture (Patti-wound Skin Appearance) Assessed, Localized Edema ,Scarring -Moisture (Patti-wound Skin Appearance) No Abnormality, Assessed -Color (Patti-wound Skin Appearance) Assessed, Hemosiderin Staining -Temperature (Patti-wound Skin No Abnormality Appearance) (Pt Warm) -Ulcer Cleansing Rinsed/ Irrigated with Saline -Foul Odor after Cleansing No -Anesthetic Used 4% Lidocaine Solution Lower Limb Edema Present Yes Left Calf (cm) 43.5 Left Ankle (cm) 25.0 - Nurse 3 - General Ulcer D/C NN Start: 11/22/20 08:33 Freq: Status: Active Protocol: Activity Type Activity Date Activity User E-Sign Co-Sign Detail Recorded Client Recorded Date Recorded By Document 11/22/20 09:13 MW [id number] 11/22/20 09:14 MW 11/22/20 09:13 Wound Care Nurse 3 #6 left lateral foot -Ulcer Cleansing Rinsed/ Irrigated with Saline -Foul Odor after Cleansing No -Negative Pressure Wound Therapy N/A -Primary Dressing Applied C Hydrogel ($) -Primary Dressing Covered/Secured with Dry Gauze, Secured with Tape Treatment Response Procedure Tolerated Well Pain Scale: 0-10 Numeric Is Patient Pain Free? Yes Teaching: Wound Center Dressing Your Wound -Person Taught Patient -Teaching Method Discussion, Demonstration -Response to teaching Verbalize understanding WC - Visit Discharge Discharge Condition Stable Ambulatory Status Ambulatory,Cane Transportation Private Auto Accompanied by self Medication Reconcilliation completed & No provided to patient/care provider Clinical Summary of Care Provided Yes Wound debrided: Left lateral foot/malleolus Laterality: Left Type of Debridement: Excisional debridement Anesthesia Used: 5% Lidocaine Gel Depth: Down to and including healthy tissue and in the subcutaneous layer Percentage of wound debrided: 100 Instrument Used: 5mm curette Tissue Removed: Bioburden Severity: Fat Layer Exposed Amount of bleeding with debridement: Mild Bleeding Controlled with: Compression and gauze Patient tolerated procedure: Patient tolerated procedure well Assessment/Plan Assessment/Plan (1) Venous ulcer of ankle: CODE(S): I83.003 - Varicose veins of unspecified lower extremity with ulcer of ankle; L97.309 - Non-pressure chronic ulcer of unspecified ankle with unspecified severity QUALIFIERS: Varicose vein presence: with varicose veins Laterality: left Non-pressure ulcer stage: with fat layer exposed Qualified Code(s): I83.023 - Varicose veins of left lower extremity with ulcer of ankle; L97.322 - Non-pressure chronic ulcer of left ankle with fat layer exposed (2) Hancock phlebectatica paraplantaris: CODE(S): R09.89 - Other specified symptoms and signs involving the circulatory and respiratory systems (3) Leg edema: CODE(S): R60.0 - Localized edema (4) Leg swelling: CODE(S): M79.89 - Other specified soft tissue disorders (5) Chronic venous insufficiency: CODE(S): I87.2 - Venous insufficiency (chronic) (peripheral) (6) Epilepsy: CODE(S): G40.909 - Epilepsy, unspecified, not intractable, without status epilepticus (7) Morbid obesity with BMI of 40.0-44.9, adult: CODE(S): E66.01 - Morbid (severe) obesity due to excess calories; Z68.41 - Body mass index [BMI]40.0-44.9, adult (8) CHF (congestive heart failure): CODE(S): I50.9 - Heart failure, unspecified (9) Oxygen dependent: CODE(S): Z99.81 - Dependence on supplemental oxygen (10) COPD (chronic obstructive pulmonary disease): CODE(S): J44.9 - Chronic obstructive pulmonary disease, unspecified PLAN: This is a 75-year-old male who presented with an ulceration on the lateral aspect of his left foot/ankle. He has had prior ulcerations at the site in the past. They are thought to be related to the patient's chronic venous disease. Patient experiences swelling and edema in both lower extremities. He sleeps in a recliner. We have implemented conservative treatment measures relative to the patient's chronic venous disease and lower extremity swelling and edema. Patient has been advised to elevate his lower extremities as much as possible. Elevation is to be to heart level, or higher. This is to be achieved as much as possible. The patient has been encouraged to sleep on a flat mattress at night. He has been encouraged to elevate his lower extremities as much as possible even during daytime hours. Activity has been encouraged. Prolonged idle sitting and standing has been discouraged. Weight loss has been recommended. He possesses graduated compression stockings of 30 to 40 mmHg compression, and has been wearing them daily. We are to continue the use of collagen hydrogel topically to the ulceration on the left lateral foot. A noninvasive lower extremity arterial study has been performed, revealing no evidence of arterial occlusive disease. A venous duplex examination has also been performed, which reveals incompetence of the left saphenofemoral junction, the left great saphenous vein, 2 accessory saphenous veins, the left small saphenous vein, and an incompetent left calf recycle coordinator vein. The results of the studies, and their implications, have been discussed thoroughly with the patient. The patient is to return in 2 weeks for reevaluation. The patient has also been advised to assure that his shoes are fitted properly, and that there is no pressure or friction from his shoes that may be contributing to the development of ulcerations on his foot. Total time: 28 minutes
[2020-12-06 08:26] VITALS: BP 133/68; PULSE 65; RESP 18; TEMP 36.8; BMI 41.6
--- NOTE | 2020-12-06 09:09 | HP.PCM_ITS ---
History of Present Illness Date of Service: 12/06/20 Chief Complaint: Ulceration of the left lateral foot History of Wound: This is a 75-year-old male who presented with an ulceration on the lateral aspect of his left foot, just inferior to his left lateral malleolus. Had been present for approximately 2 weeks. However, the patient has previously had an ulcer at this site in the past. He has been treated at our facility for such. His previous ulceration was healed by conservative means. Patient is ambulatory. He experiences swelling and edema in his lower extremities bilaterally, which is worse by the end of the day. He claims to sleep in a recliner. Medical history includes chronic obstructive pulmonary disease, congestive heart failure, hypertension, chronic venous insufficiency, obesity, and epilepsy. The patient is also known to be oxygen dependent, using 3 L of oxygen per nasal cannula as a baseline, and sometimes even higher amounts. Review of the patient's past records reveals a noninvasive lower extremity arterial study in 2013 which revealed no evidence of arterial occlusive disease in the patient's lower extremities. Of note, the patient underwent bilateral lower extremity venous procedures in 2017, though he has no recollection of what procedures were performed, nor the physician who performed them. Patient has also undergone prior bilateral knee replacement surgeries, and several lumbar disc surgeries in the past. The patient claims to possess graduated compression stockings, which he has not been wearing recently. He is uncertain as to the degree of compression. [facility] Medical History (Updated 11/15/20 @ 08:[address] Brady Aguilar MD) CHF (congestive heart failure) Chronic venous insufficiency COPD (chronic obstructive pulmonary disease) Hancock phlebectatica paraplantaris Epilepsy Leg edema Leg swelling Morbid obesity with BMI of 40.0-44.9, adult Oxygen dependent Venous ulcer of ankle Home Medications B complex with C 20-folic acid [Nephrocaps Softgel] 1 mg PO DAILY 12/04/13 [History Last Taken Unknown] aspirin 325 mg PO DAILY 12/04/13 [History Last Taken Unknown] naproxen sodium [Naprelan CR] 500 mg PO Q6H PRN PRN 12/04/13 [History Last Taken Unknown] phenytoin sodium extended 600 mg PO TID 12/04/13 [History Last Taken Unknown] sertraline 100 mg PO DAILY 12/04/13 [History Last Taken Unknown] timolol maleate 1 drp EACH EYE BID 12/04/13 [History Last Taken Unknown] budesonide [Pulmicort Flexhaler 90 mcg] 1 puff INHALATION BID 03/15/17 [History Last Taken Unknown] carvedilol [Coreg] 6.25 mg PO BID 03/15/17 [History Last Taken Unknown] cholecalciferol (vitamin D3) [Vitamin D3] 1,000 unit PO DAILY 03/15/17 [History Last Taken Unknown] gemfibrozil 600 mg PO BIDAC 03/15/17 [History Last Taken Unknown] melatonin 3 mg PO PRN PRN 03/15/17 [History Last Taken Unknown] oxycodone-acetaminophen 1 tab PO PRN PRN 03/15/17 [History Last Taken Unknown] sildenafil [Viagra] 100 mg PO PRN PRN 03/15/17 [History Last Taken Unknown] spironolactone 50 mg PO DAILY 03/15/17 [History Last Taken Unknown] torsemide [Demadex] 40 mg PO DAILY 03/15/17 [History Last Taken Unknown] sertraline 100 mg PO DAILY 11/08/20 [History Last Taken Unknown] Allergy/AdvReac Type Severity Reaction Status Date / Time silver sulfadiazine Allergy Severe Rash and Verified 01/25/14 09:47 swelling adhesive Allergy Rash Verified 03/15/17 11:26 Social History Smoking Status: Former smoker Vital Signs Vital Signs Vital Signs: 12/06/20 08:26 Temperature 98.3 F Temperature Source Temporal Pulse Rate 65 Respiratory Rate 18 Blood Pressure 133/68 H Blood Pressure Mean 89 Blood Pressure Source Monitor Blood Pressure Position Sitting Blood Pressure Location Left Arm Oxygen Delivery Method Nasal Cannula Oxygen Flow Rate (L/min) 3 Weight Weight: 270 lb Body Mass Index (BMI) 41.6 Physical Exam Const alert, oriented x3, no apparent distress and well nourished General Appearance: cooperative, comfortable, well kempt and well developed Orientation / Consciousness: awake, oriented to person, oriented to place and oriented to time HEENT normocephalic and head/scalp atraumatic Head and Scalp: normal to inspection, normocephalic and atraumatic External Ear: external ears normal Eyes PERRL and EOMs intact bilaterally General Eye: normal appearance of both eyes Resp normal respiratory effort, normal air movement, no retractions and no use of accessory muscles Effort and Inspection: able to speak in complete sentences Extremity no calf tenderness Extremity Narrative: No significant swelling or edema are noted in the patient's left lower extremity. General Extremity: Negative for clubbing or cyanosis Skin Wound Narrative: The ulceration on the left lateral foot persists, but is significantly smaller in size. Dimensions are documented elsewhere. There is no sign of infection or cellulitis. There is a moderate amount of bioburden. Neuro oriented x3, CN's II-XII intact bilaterally and moves all extremities Psych Appearance: grossly normal, appropriate and well kempt Attitude: calm and engaged Activity / Motor Behavior: appropriate eye contact Speech: normal speech Mood & Affect: euthymic mood Thought Process: normal thought process Thought Content: normal thought content Attention / Concentration: attention grossly intact Debridement Note Debridement Note Post-Debridement Measurements and Additional Note: Post-Debridement Measurements/Treatment - Nurse 1 - General Ulcer Assessment Start: 11/22/20 08:33 Freq: Status: Active Protocol: WC.LOWSTEFANY Activity Type Activity Date Activity User E-Sign Co-Sign Detail Recorded Client Recorded Date Recorded By Document 11/22/20 08:33 [id number] 11/22/20 08:42 Document 12/06/20 08:26 [facility] [id number] 12/06/20 08:34 [facility] 11/22/20 12/06/20 08:33 08:26 - Today's Visit Information Type of service Follow-up Visit Follow-up Visit (Physician/[facility] [employer] [facility] (Physician/[facility] ) ) Arrival Mode Ambulatory,Cane Ambulatory,Cane Transfer Assistance None Accompanied by self Patient Identification Verified (Name & Yes Yes ) Patient Requires Transmission-Based No No Precautions Safety Precautions NA Height and Weight Body Mass Index (BMI) 41.6 41.6 BMI Classification Obese Obese Vital Signs Temperature (97.8 F-99.1 F) 97.7 F L 98.3 F Temperature Source Temporal Temporal Pulse Rate (60-100) 55 L 65 Pulse Location Monitor Monitor Respiratory Rate (12-18) 20 H 18 Respiratory rate source Observation Observation Oxygen Delivery Method Nasal Cannula Nasal Cannula O2 L/MIN 3 3 Blood Pressure (90/60-120/80) 129/65 H 133/68 H Blood Pressure Mean 86 89 Source Monitor Monitor Position Sitting Sitting Blood Pressure Location Left Arm Left Arm History Since Last Visit- (Skip if this is Patient's initial visit) Have you changed medications since your No No last visit? Any new allergies or adverse reactions No No Had a fall/change in ADL's that may No No increase risk of falls Signs or symptoms of abuse and/or No No neglect since last visit Have you been in the hospital since your No No last visit? Has dressing in place as prescribed Yes Yes Has compression in place as prescribed Yes Yes Has offloadiing in place as prescribed N/A N/A Experienced any changes in pain level or No No management Left Footwear Regular Shoe Regular Shoe Right Footwear Regular Shoe Regular Shoe Pain Scale: 0-10 Numeric Is Patient Pain Free? Yes Yes WC - Nurse 1 - General Ulcer Measurement Start: 11/22/20 08:33 Freq: Status: Active Protocol: Activity Type Activity Date Activity User E-Sign Co-Sign Detail Recorded Client Recorded Date Recorded By Document 11/22/20 08:33 MW [id number] 11/22/20 08:42 MW Document 12/06/20 08:26 BMF [id number] 12/06/20 08:34 BMF 11/22/20 12/06/20 08:33 08:26 Wound Center Nurse 1 #6 left lateral foot -Combined with other wound No No -Current Size (cm) - Length 1.0 0.5 -Current Size (cm) - Width 1.0 0.4 -Current Size (cm) - Depth 0.1 0.1 -Total Square Cm 1.00 0.20 -Photo Taken No No -Epithelialization None Present None Present -Tunneling No No -Undermining/Tunneling No No -Circular Undermining No No -Exudate Amt Small Medium -Exudate Type Serosanguineous Serosanguineous -Wound Margin Flat & Intact Distinct, Outline Attached -Granulation Amt None Present (0 Medium (34-66%) %) -Granulation Quality N/A Red -Slough/Fibrin Yes Yes -Necrosis Amt Large (67-100%) Medium (34-66%) -Necrotic Tissue Type Adherent Slough Adherent Slough -Structure Exposed N/A -Texture (Patti-wound Skin Appearance) Assessed, Assessed, Localized Edema Scarring ,Scarring -Moisture (Patti-wound Skin Appearance) No Abnormality, Assessed, Assessed Maceration,Dry/ Scaly -Color (Patti-wound Skin Appearance) Assessed, Assessed,Palor Hemosiderin Staining -Temperature (Patti-wound Skin No Abnormality No Abnormality Appearance) (Pt Warm) (Pt Warm) -Tenderness on Palpation (Patti-wound No Skin Appearance) -Ulcer Cleansing Rinsed/ Rinsed/ Irrigated with Irrigated with Saline Saline -Foul Odor after Cleansing No No -Anesthetic Used 4% Lidocaine 5% Lidocaine Solution Gel Lower Limb Edema Present Yes Left Calf (cm) 43.5 Left Ankle (cm) 25.0 WC - Nurse 2 - General Ulcer CM Notes Start: 11/22/20 08:33 Freq: Status: Active Protocol: Activity Type Activity Date Activity User E-Sign Co-Sign Detail Recorded Client Recorded Date Recorded By Document 11/22/20 12:48 PL [id number] 11/22/20 12:49 PL 11/22/20 12:48 Wound Center Nurse 2 -Time 08:57 -Correct Patient Yes -Correct Side, Site, Position Yes -Correct Procedure Yes -Procedure Performed Yes -Type of Procedure Debridement -Clinical Debridement Subcutaneous -Tissue Removed Subcutaneous -Post Debridement (cm) - Length 1.0 -Post Debridement (cm) - Width 1.0 -Post Debridement (cm) - Depth 0.1 -Total Square (Post) (cm) 1.00 -Area of Debridement (cm) - Length 1.0 -Area of Debridement (cm) - Width 1.0 -Total Square (Area) (cm) 1.00 -Tunneling No -Undermining/Tunneling No -Circular Undermining No -Wound/Ulcer Outcome Not Healed -Ulcer Cleansing Rinsed/ Irrigated with Saline -Foul Odor after Cleansing No -Bioengineered Tissue No -Debridement - Subq, 1st 20sq cm Yes Pain Scale: 0-10 Numeric Is Patient Pain Free? Yes WC - Nurse 3 - General Ulcer D/C NN Start: 11/22/20 08:33 Freq: Status: Active Protocol: Activity Type Activity Date Activity User E-Sign Co-Sign Detail Recorded Client Recorded Date Recorded By Document 11/22/20 09:13 MW [id number] 11/22/20 09:14 MW Document 12/06/20 08:56 KR [id number] 12/06/20 08:59 KR 11/22/20 12/06/20 09:13 08:56 Wound Care Nurse 3 #6 left lateral foot -Ulcer Cleansing Rinsed/ Rinsed/ Irrigated with Irrigated with Saline Saline -Foul Odor after Cleansing No -Negative Pressure Wound Therapy N/A -Primary Dressing Applied C Hydrogel ($) C Hydrogel ($) -Primary Dressing Covered/Secured with Dry Gauze, Dry Gauze, Secured with Secured with Tape Tape Treatment Response Procedure Tolerated Well Pain Scale: 0-10 Numeric Is Patient Pain Free? Yes Yes Teaching: Wound Center Dressing Your Wound -Person Taught Patient -Teaching Method Discussion, Demonstration -Response to teaching Verbalize understanding WC - Visit Discharge Discharge Condition Stable Stable Ambulatory Status Ambulatory,Cane Ambulatory,Cane Transportation Private Auto Private Auto Accompanied by self Medication Reconcilliation completed & No provided to patient/care provider Clinical Summary of Care Provided Yes Wound debrided: Left lateral foot Laterality: Left Type of Debridement: Excisional debridement Anesthesia Used: 5% Lidocaine Gel Depth: Down to and including healthy tissue and in the subcutaneous layer Percentage of wound debrided: 100 Instrument Used: 3mm curette Tissue Removed: Bioburden Severity: Fat Layer Exposed Amount of bleeding with debridement: Mild Bleeding Controlled with: Compression and gauze Patient tolerated procedure: Patient tolerated procedure well Assessment/Plan Assessment/Plan (1) Venous ulcer of ankle: CODE(S): I83.003 - Varicose veins of unspecified lower extremity with ulcer of ankle; L97.309 - Non-pressure chronic ulcer of unspecified ankle with unspecified severity QUALIFIERS: Varicose vein presence: with varicose veins Laterality: left Non-pressure ulcer stage: with fat layer exposed Qualified Code(s): I83.023 - Varicose veins of left lower extremity with ulcer of ankle; L97.322 - Non-pressure chronic ulcer of left ankle with fat layer exposed (2) Chronic venous insufficiency: CODE(S): I87.2 - Venous insufficiency (chronic) (peripheral) (3) Leg swelling: CODE(S): M79.89 - Other specified soft tissue disorders (4) Hancock phlebectatica paraplantaris: CODE(S): R09.89 - Other specified symptoms and signs involving the c irculatory and respiratory systems (5) Morbid obesity with BMI of 40.0-44.9, adult: CODE(S): E66.01 - Morbid (severe) obesity due to excess calories; Z68.41 - Body mass index [BMI]40.0-44.9, adult (6) Epilepsy: CODE(S): G40.909 - Epilepsy, unspecified, not intractable, without status epilepticus (7) CHF (congestive heart failure): CODE(S): I50.9 - Heart failure, unspecified (8) Leg edema: CODE(S): R60.0 - Localized edema (9) Oxygen dependent: CODE(S): Z99.81 - Dependence on supplemental oxygen (10) COPD (chronic obstructive pulmonary disease): CODE(S): J44.9 - Chronic obstructive pulmonary disease, unspecified (11) Peripheral vascular disease of lower extremity with ulceration: CODE(S): I73.9 - Peripheral vascular disease, unspecified; L97.909 - Non- pressure chronic ulcer of unspecified part of unspecified lower leg with unspecified severity (12) Peripheral vascular disease of lower extremity with ulceration: CODE(S): I73.9 - Peripheral vascular disease, unspecified; L97.909 - Non- pressure chronic ulcer of unspecified part of unspecified lower leg with unspecified severity (13) Atherosclerotic peripheral vascular disease with ulceration: CODE(S): I70.209 - Unspecified atherosclerosis of [place] arteries of extr emities, unspecified extremity; L98.499 - Non-pressure chronic ulcer of skin of other sites with unspecified severity QUALIFIERS: Peripheral atherosclerosis location: lower extremity (14) Peripheral vascular occlusive disease: CODE(S): I73.9 - Peripheral vascular disease, unspecified PLAN: This is a 75-year-old male who presented with an ulceration on the lateral aspect of his left foot/ankle. He has had prior ulcerations at the site in the past. They are thought to be related to the patient's chronic venous disease. Patient experiences swelling and edema in both lower extremities. He sleeps in a recliner. We have implemented conservative treatment measures relative to the patient's chronic venous disease and lower extremity swelling and edema. Patient has been advised to elevate his lower extremities as much as possible. Elevation is to be to heart level, or higher. This is to be achieved as much as possible. The patient has been encouraged to sleep on a flat mattress at night. He has been encouraged to elevate his lower extremities as much as possible even during daytime hours. Activity has been encouraged. Prolonged idle sitting and standing has been discouraged. Weight loss has been recommended. He possesses graduated compression stockings of 30 to 40 mmHg compression, and has been wearing them daily. We are to continue the use of collagen hydrogel topically to the ulceration on the left lateral foot. A noninvasive lower extremity arterial study has been performed, revealing no evidence of arterial occlusive disease. A venous duplex examination has also been performed, which reveals incompetence of the left saphenofemoral junction, the left great saphenous vein, 2 accessory saphenous veins, the left small saphenous vein, and an incompetent left calf perinatal technician vein. The results of the studies, and their implications, have been discussed thoroughly with the patient. The patient is to return in 1 week for reevaluation. The patient has also been advised to assure that his shoes are fitted properly, and that there is no pressure or friction from his shoes that may be contributing to the development of ulcerations on his foot. Total time: 29 minutes
--- NOTE | 2020-12-13 08:47 | PCM.WC.HP ---
History of Present Illness Date of Service: 12/13/20 Chief Complaint: Ulceration of the left lateral foot History of Wound: This is a 75-year-old male who presented with an ulceration on the lateral aspect of his left foot, just inferior to his left lateral malleolus. Had been present for approximately 2 weeks. However, the patient has previously had an ulcer at this site in the past. He has been treated at our facility for such. His previous ulceration was healed by conservative means. Patient is ambulatory. He experiences swelling and edema in his lower extremities bilaterally, which is worse by the end of the day. He claims to sleep in a recliner. Medical history includes chronic obstructive pulmonary disease, congestive heart failure, hypertension, chronic venous insufficiency, obesity, and epilepsy. The patient is also known to be oxygen dependent, using 3 L of oxygen per nasal cannula as a baseline, and sometimes even higher amounts. Review of the patient's past records reveals a noninvasive lower extremity arterial study in 2013 which revealed no evidence of arterial occlusive disease in the patient's lower extremities. Of note, the patient underwent bilateral lower extremity venous procedures in 2017, though he has no recollection of what procedures were performed, nor the physician who performed them. Patient has also undergone prior bilateral knee replacement surgeries, and several lumbar disc surgeries in the past. The patient claims to possess graduated compression stockings, which he has not been wearing recently. He is uncertain as to the degree of compression. [facility] Medical History (Updated 11/15/20 @ 08:[address] Brady Aguilar MD) CHF (congestive heart failure) Chronic venous insufficiency COPD (chronic obstructive pulmonary disease) [place] phlebectatica paraplantaris Epilepsy Leg edema Leg swelling Morbid obesity with BMI of 40.0-44.9, adult Oxygen dependent Venous ulcer of ankle Home Medications B complex with C 20-folic acid [Nephrocaps Softgel] 1 mg PO DAILY 12/04/13 [History Last Taken Unknown] aspirin 325 mg PO DAILY 12/04/13 [History Last Taken Unknown] naproxen sodium [Naprelan CR] 500 mg PO Q6H PRN PRN 12/04/13 [History Last Taken Unknown] phenytoin sodium extended 600 mg PO TID 12/04/13 [History Last Taken Unknown] sertraline 100 mg PO DAILY 12/04/13 [History Last Taken Unknown] timolol maleate 1 drp EACH EYE BID 12/04/13 [History Last Taken Unknown] budesonide [Pulmicort Flexhaler 90 mcg] 1 puff INHALATION BID 03/15/17 [History Last Taken Unknown] carvedilol [Coreg] 6.25 mg PO BID 03/15/17 [History Last Taken Unknown] cholecalciferol (vitamin D3) [Vitamin D3] 1,000 unit PO DAILY 03/15/17 [History Last Taken Unknown] gemfibrozil 600 mg PO BIDAC 03/15/17 [History Last Taken Unknown] melatonin 3 mg PO PRN PRN 03/15/17 [History Last Taken Unknown] oxycodone-acetaminophen 1 tab PO PRN PRN 03/15/17 [History Last Taken Unknown] sildenafil [Viagra] 100 mg PO PRN PRN 03/15/17 [History Last Taken Unknown] spironolactone 50 mg PO DAILY 03/15/17 [History Last Taken Unknown] torsemide [Demadex] 40 mg PO DAILY 03/15/17 [History Last Taken Unknown] sertraline 100 mg PO DAILY 11/08/20 [History Last Taken Unknown] Allergy/AdvReac Type Severity Reaction Status Date / Time silver sulfadiazine Allergy Severe Rash and Verified 01/25/14 09:47 swelling adhesive Allergy Rash Verified 03/15/17 11:26 Social History Smoking Status: Former smoker Vital Signs Vital Signs Vital Signs: Weight Weight: 270 lb Body Mass Index (BMI) 41.6 Physical Exam Const alert, oriented x3, no apparent distress and well nourished Constitutional Narrative: The patient is obese. General Appearance: cooperative, comfortable, well kempt and well developed Orientation / Consciousness: awake, oriented to person, oriented to place and oriented to time Nutritional Appearance: obese HEENT normocephalic and head/scalp atraumatic Head and Scalp: normal to inspection, normocephalic and atraumatic External Ear: external ears normal Eyes PERRL and EOMs intact bilaterally General Eye: normal appearance of both eyes Resp normal respiratory effort, normal air movement, no retractions and no use of accessory muscles Effort and Inspection: able to speak in complete sentences Extremity no clubbing, cyanosis or edema and no calf tenderness General Extremity: Negative for clubbing or cyanosis Skin Wound Narrative: Duration on the left lateral foot, just inferior to the left lateral malleolus, persists. There is no sign of infection or cellulitis. It is smaller in size. Dimensions are documented elsewhere. At this juncture, it is nearly healed. Neuro oriented x3, CN's II-XII intact bilaterally and moves all extremities Speech: speech normal Psych Appearance: grossly normal and appropriate Attitude: calm Activity / Motor Behavior: appropriate eye contact Speech: normal speech Mood & Affect: euthymic mood Thought Process: normal thought process Thought Content: normal thought content Attention / Concentration: attention grossly intact Debridement Note Debridement Note Post-Debridement Measurements and Additional Note: Post-Debridement Measurements/Treatment - Nurse 1 - General Ulcer Assessment Start: 11/22/20 08:33 Freq: Status: Active Protocol: NetSpend Activity Type Activity Date Activity User E-Sign Co-Sign Detail Recorded Client Recorded Date Recorded By Document 11/22/20 08:33 [id number] 11/22/20 08:42 MW Document 12/06/20 08:26 [facility] [id number] 12/06/20 08:34 [facility] 11/22/20 12/06/20 08:33 08:26 - Today's Visit Information Type of service Follow-up Visit Follow-up Visit (Physician/MOTION PICTURE PROJECTIONIST (Physician/MOTION PICTURE PROJECTIONIST ) ) Arrival Mode Ambulatory,Cane Ambulatory,Cane Transfer Assistance None Accompanied by self Patient Identification Verified (Name & Yes Yes ) Patient Requires Transmission-Based No No Precautions Safety Precautions NA Height and Weight Body Mass Index (BMI) 41.6 41.6 BMI Classification Obese Obese Vital Signs Temperature (97.8 F-99.1 F) 97.7 F L 98.3 F Temperature Source Temporal Temporal Pulse Rate (60-100) 55 L 65 Pulse Location Monitor Monitor Respiratory Rate (12-18) 20 H 18 Respiratory rate source Observation Observation Oxygen Delivery Method Nasal Cannula Nasal Cannula O2 L/MIN 3 3 Blood Pressure (90/60-120/80) 129/65 H 133/68 H Blood Pressure Mean 86 89 Source Monitor Monitor Position Sitting Sitting Blood Pressure Location Left Arm Left Arm History Since Last Visit- (Skip if this is Patient's initial visit) Have you changed medications since your No No last visit? Any new allergies or adverse reactions No No Had a fall/change in ADL's that may No No increase risk of falls Signs or symptoms of abuse and/or No No neglect since last visit Have you been in the hospital since your No No last visit? Has dressing in place as prescribed Yes Yes Has compression in place as prescribed Yes Yes Has offloadiing in place as prescribed N/A N/A Experienced any changes in pain level or No No management Left Footwear Regular Shoe Regular Shoe Right Footwear Regular Shoe Regular Shoe Pain Scale: 0-10 Numeric Is Patient Pain Free? Yes Yes WC - Nurse 1 - General Ulcer Measurement Start: 11/22/20 08:33 Freq: Status: Active Protocol: Activity Type Activity Date Activity User E-Sign Co-Sign Detail Recorded Client Recorded Date Recorded By Document 11/22/20 08:33 MW [id number] 11/22/20 08:42 MW Document 12/06/20 08:26 BMF [id number] 12/06/20 08:34 BMF 11/22/20 12/06/20 08:33 08:26 Wound Center Nurse 1 #6 left lateral foot -Combined with other wound No No -Current Size (cm) - Length 1.0 0.5 -Current Size (cm) - Width 1.0 0.4 -Current Size (cm) - Depth 0.1 0.1 -Total Square Cm 1.00 0.20 -Photo Taken No No -Epithelialization None Present None Present -Tunneling No No -Undermining/Tunneling No No -Circular Undermining No No -Exudate Amt Small Medium -Exudate Type Serosanguineous Serosanguineous -Wound Margin Flat & Intact Distinct, Outline Attached -Granulation Amt None Present (0 Medium (34-66%) %) -Granulation Quality N/A Red -Slough/Fibrin Yes Yes -Necrosis Amt Large (67-100%) Medium (34-66%) -Necrotic Tissue Type Adherent Slough Adherent Slough -Structure Exposed N/A -Texture (Patti-wound Skin Appearance) Assessed, Assessed, Localized Edema Scarring ,Scarring -Moisture (Patti-wound Skin Appearance) No Abnormality, Assessed, Assessed Maceration,Dry/ Scaly -Color (Patti-wound Skin Appearance) Assessed, Assessed,Palor Hemosiderin Staining -Temperature (Patti-wound Skin No Abnormality No Abnormality Appearance) (Pt Warm) (Pt Warm) -Tenderness on Palpation (Patti-wound No Skin Appearance) -Ulcer Cleansing Rinsed/ Rinsed/ Irrigated with Irrigated with Saline Saline -Foul Odor after Cleansing No No -Anesthetic Used 4% Lidocaine 5% Lidocaine Solution Gel Lower Limb Edema Present Yes Left Calf (cm) 43.5 Left Ankle (cm) 25.0 WC - Nurse 2 - General Ulcer CM Notes Start: 11/22/20 08:33 Freq: Status: Active Protocol: Activity Type Activity Date Activity User E-Sign Co-Sign Detail Recorded Client Recorded Date Recorded By Document 11/22/20 12:48 PL [id number] 11/22/20 12:49 PL Document 12/06/20 13:28 PL [id number] 12/06/20 13:29 PL 11/22/20 12/06/20 12:48 13:28 Wound Center Nurse 2 #6 left lateral foot -Time 08:57 08:45 -Correct Patient Yes Yes -Correct Side, Site, Position Yes Yes -Correct Procedure Yes Yes -Procedure Performed Yes Yes -Type of Procedure Debridement Debridement -Clinical Debridement Subcutaneous Subcutaneous -Tissue Removed Subcutaneous Subcutaneous -Post Debridement (cm) - Length 1.0 0.5 -Post Debridement (cm) - Width 1.0 0.4 -Post Debridement (cm) - Depth 0.1 0.1 -Total Square (Post) (cm) 1.00 0.20 -Area of Debridement (cm) - Length 1.0 0.5 -Area of Debridement (cm) - Width 1.0 0.4 -Total Square (Area) (cm) 1.00 0.20 -Tunneling No No -Undermining/Tunneling No No -Circular Undermining No No -Wound/Ulcer Outcome Not Healed Not Healed -Ulcer Cleansing Rinsed/ Rinsed/ Irrigated with Irrigated with Saline Saline -Foul Odor after Cleansing No No -Bioengineered Tissue No No -Debridement - Subq, 1st 20sq cm Yes Yes Pain Scale: 0-10 Numeric Is Patient Pain Free? Yes Yes - Nurse 3 - General Ulcer D/C NN Start: 11/22/20 08:33 Freq: Status: Active Protocol: Activity Type Activity Date Activity User E-Sign Co-Sign Detail Recorded Client Recorded Date Recorded By Document 11/22/20 09:13 MW [id number] 11/22/20 09:14 MW Document 12/06/20 08:56 KR [id number] 12/06/20 08:59 KR 11/22/20 12/06/20 09:13 08:56 Wound Care Nurse 3 #6 left lateral foot -Ulcer Cleansing Rinsed/ Rinsed/ Irrigated with Irrigated with Saline Saline -Foul Odor after Cleansing No -Negative Pressure Wound Therapy N/A -Primary Dressing Applied C Hydrogel ($) C Hydrogel ($) -Primary Dressing Covered/Secured with Dry Gauze, Dry Gauze, Secured with Secured with Tape Tape Treatment Response Procedure Tolerated Well Pain Scale: 0-10 Numeric Is Patient Pain Free? Yes Yes Teaching: Wound Center Dressing Your Wound -Person Taught Patient -Teaching Method Discussion, Demonstration -Response to teaching Verbalize understanding WC - Visit Discharge Discharge Condition Stable Stable Ambulatory Status Ambulatory,Cane Ambulatory,Cane Transportation Private Auto Private Auto Accompanied by self Medication Reconcilliation completed & No provided to patient/care provider Clinical Summary of Care Provided Yes No debridement was completed: No debridement was completed today Assessment/Plan Assessment/Plan (1) Venous ulcer of ankle: CODE(S): I83.003 - Varicose veins of unspecified lower extremity with ulcer of ankle; L97.309 - Non-pressure chronic ulcer of unspecified ankle with unspecified severity QUALIFIERS: Varicose vein presence: with varicose veins Laterality: left Non-pressure ulcer stage: with fat layer exposed Qualified Code(s): I83.023 - Varicose veins of left lower extremity with ulcer of ankle; L97.322 - Non-pressure chronic ulcer of left ankle with fat layer exposed (2) Chronic venous insufficiency: CODE(S): I87.2 - Venous insufficiency (chronic) (peripheral) (3) [place] phlebectatica paraplantaris: CODE(S): R09.89 - Other specified symptoms and signs involving the circulatory and respiratory systems (4) Morbid obesity with BMI of 40.0-44.9, adult: CODE(S): E66.01 - Morbid (severe) obesity due to excess calories; Z68.41 - Body mass index [BMI]40.0-44.9, adult (5) Epilepsy: CODE(S): G40.909 - Epilepsy, unspecified, not intractable, without status epilepticus (6) CHF (congestive heart failure): CODE(S): I50.9 - Heart failure, unspecified (7) Oxygen dependent: CODE(S): Z99.81 - Dependence on supplemental oxygen (8) COPD (chronic obstructive pulmonary disease): CODE(S): J44.9 - Chronic obstructive pulmonary disease, unspecified (9) Leg edema: CODE(S): R60.0 - Localized edema (10) Leg swelling: CODE(S): M79.89 - Other specified soft tissue disorders (11) Peripheral vascular occlusive disease: CODE(S): I73.9 - Peripheral vascular disease, unspecified (12) Peripheral vascular disease of lower extremity with ulceration: CODE(S): I73.9 - Peripheral vascular disease, unspecified; L97.909 - Non-pressure chronic ulcer of unspecified part of unspecified lower leg with unspecified severity (13) Peripheral vascular disease of lower extremity with ulceration: CODE(S): I73.9 - Peripheral vascular disease, unspecified; L97.909 - Non-pressure chronic ulcer of unspecified part of unspecified lower leg with unspecified severity (14) Atherosclerotic peripheral vascular disease with ulceration: CODE(S): I70.209 - Unspecified atherosclerosis of ruby arteries of extremities, unspecified extremity; L98.499 - Non-pressure chronic ulcer of skin of other sites with unspecified severity QUALIFIERS: Peripheral atherosclerosis location: lower extremity PLAN: This is a 75-year-old male who presented with an ulceration on the lateral aspect of his left foot/ankle. He has had prior ulcerations at the site in the past. They are thought to be related to the patient's chronic venous disease. Patient experiences swelling and edema in both lower extremities. He sleeps in a recliner. We have implemented conservative treatment measures relative to the patient's chronic venous disease and lower extremity swelling and edema. Patient has been advised to elevate his lower extremities as much as possible. Elevation is to be to heart level, or higher. This is to be achieved as much as possible. The patient has been encouraged to sleep on a flat mattress at night. He has been encouraged to elevate his lower extremities as much as possible even during daytime hours. Activity has been encouraged. Prolonged idle sitting and standing has been discouraged. Weight loss has been recommended. He possesses graduated compression stockings of 30 to 40 mmHg compression, and has been wearing them daily. We are to continue the use of collagen hydrogel topically to the ulceration on the left lateral foot. A noninvasive lower extremity arterial study has been performed, revealing no evidence of arterial occlusive disease. A venous duplex examination has also been performed, which reveals incompetence of the left saphenofemoral junction, the left great saphenous vein, 2 accessory saphenous veins, the left small saphenous vein, and an incompetent left calf shot hole shooter vein. The results of the studies, and their implications, have been discussed thoroughly with the patient. The patient is to return in 2 weeks for reevaluation. No debridement was performed today. Upon his return in 2 weeks, it is anticipated that he will be likely completely healed. The patient has also been advised to assure that his shoes are fitted properly, and that there is no pressure or friction from his shoes that may be contributing to the development of ulcerations on his foot. Total time: 28 minutes
== END 2020-12-17 23:59 ==
LOC: WC 08:15
PROVIDERS: Referring Provider Surgery; Visit Provider Surgery
DX: I83.023 Varicose veins of left lower extremity with ulcer of ankle (principal); L97.322 Non-pressure chronic ulcer of left ankle with fat layer exposed; I70.25 Atherosclerosis of native arteries of other extremities with ulceration; I87.2 Venous insufficiency (chronic) (peripheral); M79.89 Other specified soft tissue disorders; R60.0 Localized edema; I11.0 Hypertensive heart disease with heart failure; I50.9 Heart failure, unspecified; G40.909 Epilepsy, unspecified, not intractable, without status epilepticus; J44.9 Chronic obstructive pulmonary disease, unspecified; R09.89 Other specified symptoms and signs involving the circulatory and respiratory systems; E66.01 Morbid (severe) obesity due to excess calories; Z68.41 Body mass index [BMI] 40.0-44.9, adult; Z99.81 Dependence on supplemental oxygen; Z79.82 Long term (current) use of aspirin; Z79.899 Other long term (current) drug therapy; Z96.653 Presence of artificial knee joint, bilateral; Z87.891 Personal history of nicotine dependence; Z79.51 Long term (current) use of inhaled steroids
CPT/HCPCS: 11042; 93923; 93970; 99213; G0463

== ENCOUNTER 2021-01-10 08:15 | Outpatient (RCR) | payer MEDICARE, SELFPAY ==
[2020-12-06 08:26] VITALS: BMI 41.6
[2020-12-18 00:34] VITALS: BP 133/68; PULSE 65; RESP 18; TEMP 36.8
[2020-12-27 07:58] VITALS: BP 133/64; PULSE 64; TEMP 36.5; BMI 41.6
--- NOTE | 2020-12-27 08:56 | HP.PCM_ITS ---
History of Present Illness Date of Service: 12/27/20 Chief Complaint: Ulceration of the left lateral foot History of Wound: This is a 75-year-old male who presented with an ulceration on the lateral aspect of his left foot, just inferior to his left lateral malleolus. Had been present for approximately 2 weeks. However, the patient has previously had an ulcer at this site in the past. He has been treated at our facility for such. His previous ulceration was healed by conservative means. Patient is ambulatory. He experiences swelling and edema in his lower extremities bilaterally, which is worse by the end of the day. He claims to sleep in a recliner. Medical history includes chronic obstructive pulmonary disease, congestive heart failure, hypertension, chronic venous insufficiency, obesity, and epilepsy. The patient is also known to be oxygen dependent, using 3 L of oxygen per nasal cannula as a baseline, and sometimes even higher amounts. Review of the patient's past records reveals a noninvasive lower extremity arterial study in 2013 which revealed no evidence of arterial occlusive disease in the patient's lower extremities. Of note, the patient underwent bilateral lower extremity venous procedures in 2017, though he has no recollection of what procedures were performed, nor the physician who performed them. Patient has also undergone prior bilateral knee replacement surgeries, and several lumbar disc surgeries in the past. The patient claims to possess graduated compression stockings, which he has not been wearing recently. He is uncertain as to the degree of compression. [facility] Medical History CHF (congestive heart failure) Chronic venous insufficiency COPD (chronic obstructive pulmonary disease) Hancock phlebectatica paraplantaris Epilepsy Leg edema Leg swelling Morbid obesity with BMI of 40.0-44.9, adult Oxygen dependent Venous ulcer of ankle Home Medications B complex with C 20-folic acid [Nephrocaps Softgel] 1 mg PO DAILY 12/04/13 [History Last Taken Unknown] aspirin 325 mg PO DAILY 12/04/13 [History Last Taken Unknown] naproxen sodium [Naprelan CR] 500 mg PO Q6H PRN PRN 12/04/13 [History Last Taken Unknown] phenytoin sodium extended 600 mg PO TID 12/04/13 [History Last Taken Unknown] sertraline 100 mg PO DAILY 12/04/13 [History Last Taken Unknown] timolol maleate 1 drp EACH EYE BID 12/04/13 [History Last Taken Unknown] budesonide [Pulmicort Flexhaler 90 mcg] 1 puff INHALATION BID 03/15/17 [History Last Taken Unknown] carvedilol [Coreg] 6.25 mg PO BID 03/15/17 [History Last Taken Unknown] cholecalciferol (vitamin D3) [Vitamin D3] 1,000 unit PO DAILY 03/15/17 [History Last Taken Unknown] gemfibrozil 600 mg PO BIDAC 03/15/17 [History Last Taken Unknown] melatonin 3 mg PO PRN PRN 03/15/17 [History Last Taken Unknown] oxycodone-acetaminophen 1 tab PO PRN PRN 03/15/17 [History Last Taken Unknown] sildenafil [Viagra] 100 mg PO PRN PRN 03/15/17 [History Last Taken Unknown] spironolactone 50 mg PO DAILY 03/15/17 [History Last Taken Unknown] torsemide [Demadex] 40 mg PO DAILY 03/15/17 [History Last Taken Unknown] sertraline 100 mg PO DAILY 11/08/20 [History Last Taken Unknown] Allergy/AdvReac Type Severity Reaction Status Date / Time silver sulfadiazine Allergy Severe Rash and Verified 01/25/14 09:47 swelling adhesive Allergy Rash Verified 03/15/17 11:26 Social History Smoking Status: Former smoker Vital Signs Vital Signs Vital Signs: 12/27/20 07:58 Temperature 97.7 F L Temperature Source Temporal Pulse Rate 64 Blood Pressure 133/64 H Blood Pressure Mean 87 Blood Pressure Source Monitor Blood Pressure Position Semi-Fowlers Blood Pressure Location Left Arm Weight Weight: 270 lb Body Mass Index (BMI) 41.6 Physical Exam Const alert, oriented x3, no apparent distress and well nourished General Appearance: cooperative, comfortable, well kempt and well developed Orientation / Consciousness: awake, oriented to person, oriented to place and oriented to time HEENT normocephalic and head/scalp atraumatic Head and Scalp: normal to inspection, normocephalic and atraumatic External Ear: external ears normal Eyes PERRL and EOMs intact bilaterally General Eye: normal appearance of both eyes Resp normal respiratory effort, normal air movement, no retractions and no use of accessory muscles Effort and Inspection: able to speak in complete sentences Extremity no clubbing, cyanosis or edema and no calf tenderness General Extremity: Negative for clubbing or cyanosis Skin Wound Narrative: The ulceration on the left lateral foot/ankle is smaller in size. Dimensions are documented elsewhere. It is now quite small and superficial. There is no sign of infection or cellulitis. There is a small amount of bioburden. Neuro oriented x3, CN's II-XII intact bilaterally, moves all extremities and no focal motor deficits Sensorium / Orientation: awake, alert, oriented to person, oriented to place and oriented to time Psych Appearance: grossly normal and appropriate Attitude: calm Activity / Motor Behavior: appropriate eye contact Speech: normal speech Mood & Affect: euthymic mood Thought Process: normal thought process Thought Content: normal thought content Attention / Concentration: attention grossly intact Debridement Note Debridement Note Post-Debridement Measurements and Additional Note: Post-Debridement Measurements/Treatment KAZ - Nurse 1 - General Ulcer Assessment Start: 12/27/20 07:58 Freq: Status: Active Protocol: REUBEN Activity Type Activity Date Activity User E-Sign Co-Sign Detail Recorded Client Recorded Date Recorded By Document 12/27/20 07:58 LIZZ [id number] 12/27/20 08:01 LIZZ 12/27/20 07:58 - Today's Visit Information Type of service Follow-up Visit (Physician/[employer] ) Arrival Mode Cane Patient Identification Verified (Name & Yes ) Height and Weight Body Mass Index (BMI) 41.6 BMI Classification Obese Vital Signs Temperature (97.8 F-99.1 F) 97.7 F L Temperature Source Temporal Pulse Rate (60-100) 64 Pulse Location Monitor Blood Pressure (90/60-120/80) 133/64 H Blood Pressure Mean 87 Source Monitor Position Semi-Fowlers Blood Pressure Location Left Arm History Since Last Visit- (Skip if this is Patient's initial visit) Have you changed medications since your No last visit? Any new allergies or adverse reactions No Had a fall/change in ADL's that may No increase risk of falls Signs or symptoms of abuse and/or No neglect since last visit Have you been in the hospital since your No last visit? Has dressing in place as prescribed Yes Has compression in place as prescribed Yes Has offloadiing in place as prescribed N/A Experienced any changes in pain level or No management Left Footwear Regular Shoe Right Footwear Regular Shoe Pain Scale: 0-10 Numeric Is Patient Pain Free? Yes WC - Nurse 1 - General Ulcer Measurement Start: 12/27/20 07:58 Freq: Status: Active Protocol: Activity Type Activity Date Activity User E-Sign Co-Sign Detail Recorded Client Recorded Date Recorded By Document 12/27/20 07:58 LIZZ [id number] 12/27/20 08:01 LIZZ 12/27/20 07:58 Wound Center Nurse 1 #6 left lateral foot -Current Size (cm) - Length 0.7 -Current Size (cm) - Width 0.9 -Current Size (cm) - Depth 0.1 -Total Square Cm 0.63 -Exudate Amt Small -Exudate Type Yellow/Green -Wound Margin Distinct, Outline Attached -Granulation Amt Small (1-33%) -Granulation Quality [place] -Necrosis Amt Large (67-100%) -Necrotic Tissue Type Adherent Slough -Texture (Patti-wound Skin Appearance) Assessed, Scarring -Moisture (Patti-wound Skin Appearance) Assessed, Maceration -Color (Patti-wound Skin Appearance) No Abnormality, Assessed -Temperature (Patti-wound Skin No Abnormality Appearance) (Pt Warm) -Tenderness on Palpation (Patti-wound No Skin Appearance) -Ulcer Cleansing Rinsed/ Irrigated with Saline -Foul Odor after Cleansing No -Anesthetic Used 5% Lidocaine Gel Left Calf (cm) 43.2 Left Ankle (cm) 24.5 Wound debrided: Left lateral foot Laterality: Left Type of Debridement: Excisional debridement Anesthesia Used: 5% Lidocaine Gel Depth: Down to and including healthy tissue and in the subcutaneous layer Percentage of wound debrided: 100 Instrument Used: 3mm curette Tissue Removed: Bioburden Severity: Fat Layer Exposed Amount of bleeding with debridement: Mild Bleeding Controlled with: Compression and gauze Patient tolerated procedure: Patient tolerated procedure well Assessment/Plan Assessment/Plan (1) Venous ulcer of ankle: CODE(S): I83.003 - Varicose veins of unspecified lower extremity with ulcer of ankle; L97.309 - Non-pressure chronic ulcer of unspecified ankle with unspecified severity QUALIFIERS: Varicose vein presence: with varicose veins Laterality: left Non-pressure ulcer stage: with fat layer exposed Qualified Code(s): I83.023 - Varicose veins of left lower extremity with ulcer of ankle; L97.322 - Non-pressure chronic ulcer of left ankle with fat layer exposed (2) Chronic venous insufficiency: CODE(S): I87.2 - Venous insufficiency (chronic) (peripheral) (3) Hancock phlebectatica paraplantaris: CODE(S): R09.89 - Other specified symptoms and signs involving the circulatory and respiratory systems (4) Morbid obesity with BMI of 40.0-44.9, adult: CODE(S): E66.01 - Morbid (severe) obesity due to excess calories; Z68.41 - Body mass index [BMI]40.0-44.9, adult (5) Epilepsy: CODE(S): G40.909 - Epilepsy, unspecified, not intractable, without status epilepticus (6) CHF (congestive heart failure): CODE(S): I50.9 - Heart failure, unspecified (7) Oxygen dependent: CODE(S): Z99.81 - Dependence on supplemental oxygen (8) COPD (chronic obstructive pulmonary disease): CODE(S): J44.9 - Chronic obstructive pulmonary disease, unspecified (9) Leg edema: CODE(S): R60.0 - Localized edema (10) Leg swelling: CODE(S): M79.89 - Other specified soft tissue disorders PLAN: This is a 75-year-old male who presented with an ulceration on the lateral aspect of his left foot/ankle. He has had prior ulcerations at the site in the past. They are thought to be related to the patient's chronic venous disease. Patient experiences swelling and edema in both lower extremities. He sleeps in a recliner. We have implemented conservative treatment measures relative to the patient's chronic venous disease and lower extremity swelling and edema. Patient has been advised to elevate his lower extremities as much as possible. Elevation is to be to heart level, or higher. This is to be achieved as much as possible. The patient has been encouraged to sleep on a flat mattress at night. He has been encouraged to elevate his lower extremities as much as possible even during daytime hours. Activity has been encouraged. Prolonged idle sitting and standing has been discouraged. Weight loss has been recommended. He possesses graduated compression stockings of 30 to 40 mmHg compression, and has been wearing them daily. We are to continue the use of collagen hydrogel topically to the ulceration on the left lateral foot. A noninvasive lower extremity arterial study has been performed, revealing no evidence of arterial occlusive disease. A venous duplex examination has also been performed, which reveals incompetence of the left saphenofemoral junction, the left great saphenous vein, 2 accessory saphenous veins, the left small saphenous vein, and an incompetent left calf security systems sales representative vein. The results of the studies, and their implications, have been discussed thoroughly with the patient. The patient is to return in 1 week for reevaluation. The patient has also been advised to assure that his shoes are fitted properly, and that there is no pressure or friction from his shoes that may be contributing to the development of ulcerations on his foot. Total time: 29 minutes
[2021-01-10 08:04] VITALS: BP 138/72; PULSE 61; RESP 16; TEMP 35.9; BMI 41.6
--- NOTE | 2021-01-10 08:27 | HP.PCM_ITS ---
History of Present Illness Date of Service: 01/10/21 Chief Complaint: Ulceration of the left lateral foot History of Wound: This is a 75-year-old male who presented with an ulceration on the lateral aspect of his left foot, just inferior to his left lateral malleolus. Had been present for approximately 2 weeks. However, the patient has previously had an ulcer at this site in the past. He has been treated at our facility for such. His previous ulceration was healed by conservative means. Patient is ambulatory. He experiences swelling and edema in his lower extremities bilaterally, which is worse by the end of the day. He claims to sleep in a recliner. Medical history includes chronic obstructive pulmonary disease, congestive heart failure, hypertension, chronic venous insufficiency, obesity, and epilepsy. The patient is also known to be oxygen dependent, using 3 L of oxygen per nasal cannula as a baseline, and sometimes even higher amounts. Review of the patient's past records reveals a noninvasive lower extremity arterial study in 2013 which revealed no evidence of arterial occlusive disease in the patient's lower extremities. Of note, the patient underwent bilateral lower extremity venous procedures in 2017, though he has no recollection of what procedures were performed, nor the physician who performed them. Patient has also undergone prior bilateral knee replacement surgeries, and several lumbar disc surgeries in the past. The patient claims to possess graduated compression stockings, which he has not been wearing recently. He is uncertain as to the degree of compression. [facility] Medical History CHF (congestive heart failure) Chronic venous insufficiency COPD (chronic obstructive pulmonary disease) Hancock phlebectatica paraplantaris Epilepsy Leg edema Leg swelling Morbid obesity with BMI of 40.0-44.9, adult Oxygen dependent Venous ulcer of ankle Home Medications B complex with C 20-folic acid [Nephrocaps Softgel] 1 mg PO DAILY 12/04/13 [History Last Taken Unknown] aspirin 325 mg PO DAILY 12/04/13 [History Last Taken Unknown] naproxen sodium [Naprelan CR] 500 mg PO Q6H PRN PRN 12/04/13 [History Last Taken Unknown] phenytoin sodium extended 600 mg PO TID 12/04/13 [History Last Taken Unknown] sertraline 100 mg PO DAILY 12/04/13 [History Last Taken Unknown] timolol maleate 1 drp EACH EYE BID 12/04/13 [History Last Taken Unknown] budesonide [Pulmicort Flexhaler 90 mcg] 1 puff INHALATION BID 03/15/17 [History Last Taken Unknown] carvedilol [Coreg] 6.25 mg PO BID 03/15/17 [History Last Taken Unknown] cholecalciferol (vitamin D3) [Vitamin D3] 1,000 unit PO DAILY 03/15/17 [History Last Taken Unknown] gemfibrozil 600 mg PO BIDAC 03/15/17 [History Last Taken Unknown] melatonin 3 mg PO PRN PRN 03/15/17 [History Last Taken Unknown] oxycodone-acetaminophen 1 tab PO PRN PRN 03/15/17 [History Last Taken Unknown] sildenafil [Viagra] 100 mg PO PRN PRN 03/15/17 [History Last Taken Unknown] spironolactone 50 mg PO DAILY 03/15/17 [History Last Taken Unknown] torsemide [Demadex] 40 mg PO DAILY 03/15/17 [History Last Taken Unknown] sertraline 100 mg PO DAILY 11/08/20 [History Last Taken Unknown] Allergy/AdvReac Type Severity Reaction Status Date / Time silver sulfadiazine Allergy Severe Rash and Verified 01/25/14 09:47 swelling adhesive Allergy Rash Verified 03/15/17 11:26 Social History Smoking Status: Former smoker Vital Signs Vital Signs Vital Signs: 01/10/21 08:04 Temperature 96.7 F L Temperature Source Temporal Pulse Rate 61 Respiratory Rate 16 Blood Pressure 138/72 H Blood Pressure Mean 94 Blood Pressure Source Monitor Blood Pressure Position Sitting Oxygen Delivery Method Nasal Cannula Oxygen Flow Rate (L/min) 6 Weight Weight: 270 lb Body Mass Index (BMI) 41.6 Physical Exam Const alert, oriented x3, no apparent distress and well nourished Constitutional Narrative: The patient is morbidly obese. General Appearance: cooperative, comfortable, well kempt and well developed Orientation / Consciousness: awake, oriented to person, oriented to place and oriented to time HEENT normocephalic and head/scalp atraumatic Head and Scalp: normal to inspection, normocephalic and atraumatic External Ear: external ears normal Eyes PERRL and EOMs intact bilaterally General Eye: normal appearance of both eyes Resp normal respiratory effort, normal air movement, no retractions and no use of accessory muscles Effort and Inspection: able to speak in complete sentences Extremity no clubbing, cyanosis or edema and no calf tenderness Extremity Narrative: There is no significant swelling or edema in the lower ext remities. General Extremity: Negative for clubbing or cyanosis Skin Wound Narrative: The ulceration on the left lateral foot persists, though is much smaller in size. Dimensions are documented elsewhere. There is no sign of infection or cellulitis. There is a small amount of bioburden. Neuro oriented x3, CN's II-XII intact bilaterally and moves all extremities Psych mental status grossly normal Appearance: grossly normal and appropriate Attitude: calm Activity / Motor Behavior: appropriate eye contact Speech: normal speech Mood & Affect: euthymic mood Thought Process: normal thought process Thought Content: normal thought content Attention / Concentration: attention grossly intact Debridement Note Debridement Note Post-Debridement Measurements and Additional Note: Post-Debridement Measurements/Treatment - Nurse 1 - General Ulcer Assessment Start: 12/27/20 07:58 Freq: Status: Active Protocol: REUBEN Activity Type Activity Date Activity User E-Sign Co-Sign Detail Recorded Client Recorded Date Recorded By Document 12/27/20 07:58 [id number] 12/27/20 08:01 Document 01/10/21 08:04 [facility] [id number] 01/10/21 08:12 [facility] 12/27/20 01/10/21 07:58 08:04 - Today's Visit Information Type of service Follow-up Visit Follow-up Visit (Physician/SUPERVISOR OF GUIDANCE AND TESTING (Physician/SUPERVISOR OF GUIDANCE AND TESTING ) ) Arrival Mode Cane Ambulatory,Cane Patient Identification Verified (Name & Yes Yes ) Patient Requires Transmission-Based No Precautions Height and Weight Body Mass Index (BMI) 41.6 41.6 BMI Classification Obese Obese Vital Signs Temperature (97.8 F-99.1 F) 97.7 F L 96.7 F L Temperature Source Temporal Temporal Pulse Rate (60-100) 64 61 Pulse Location Monitor Monitor Respiratory Rate (12-18) 16 Respiratory rate source Observation Oxygen Delivery Method Nasal Cannula O2 L/MIN 6 Blood Pressure (90/60-120/80) 133/64 H 138/72 H Blood Pressure Mean 87 94 Source Monitor Monitor Position Semi-Fowlers Sitting Blood Pressure Location Left Arm History Since Last Visit- (Skip if this is Patient's initial visit) Have you changed medications since your No last visit? Any new allergies or adverse reactions No Had a fall/change in ADL's that may No increase risk of falls Signs or symptoms of abuse and/or No neglect since last visit Have you been in the hospital since your No last visit? Has dressing in place as prescribed Yes Has compression in place as prescribed Yes Has offloadiing in place as prescribed N/A Experienced any changes in pain level or No management Left Footwear Regular Shoe Regular Shoe Right Footwear Regular Shoe Regular Shoe Pain Scale: 0-10 Numeric Is Patient Pain Free? Yes Yes WC - Nurse 1 - General Ulcer Measurement Start: 12/27/20 07:58 Freq: Status: Active Protocol: Activity Type Activity Date Activity User E-Sign Co-Sign Detail Recorded Client Recorded Date Recorded By Document 12/27/20 07:58 KR [id number] 12/27/20 08:01 KR Document 01/10/21 08:04 BM [id number] 01/10/21 08:12 BMF 12/27/20 01/10/21 07:58 08:04 Wound Center Nurse 1 #6 left lateral foot -Combined with other wound No -Current Size (cm) - Length 0.7 0.1 -Current Size (cm) - Width 0.9 0.1 -Current Size (cm) - Depth 0.1 0.1 -Total Square Cm 0.63 0.01 -Epithelialization Large 67-100% -Tunneling No -Undermining/Tunneling No -Circular Undermining No -Exudate Amt Small Small -Exudate Type Yellow/Green Serous -Wound Margin Distinct, Flat & Intact Outline Attached -Granulation Amt Small (1-33%) Large (67-100%) -Granulation Quality Caro Caro -Necrosis Amt Large (67-100%) -Necrotic Tissue Type Adherent Slough -Texture (Patti-wound Skin Appearance) Assessed, Assessed, Scarring Scarring -Moisture (Patti-wound Skin Appearance) Assessed, Assessed,Dry/ Maceration Scaly -Color (Patti-wound Skin Appearance) No Abnormality, Assessed Assessed -Temperature (Patti-wound Skin No Abnormality No Abnormality Appearance) (Pt Warm) (Pt Warm) -Tenderness on Palpation (Patti-wound No No Skin Appearance) -Ulcer Cleansing Rinsed/ Rinsed/ Irrigated with Irrigated with Saline Saline -Foul Odor after Cleansing No No -Anesthetic Used 5% Lidocaine 5% Lidocaine Gel Gel Lower Limb Edema Present Yes Left Calf (cm) 43.2 44.1 Left Ankle (cm) 24.5 26.3 WC - Nurse 2 - General Ulcer CM Notes Start: 12/27/20 07:58 Freq: Status: Active Protocol: Activity Type Activity Date Activity User E-Sign Co-Sign Detail Recorded Client Recorded Date Recorded By Document 12/27/20 12:09 PL [id number] 12/27/20 12:30 PL 12/27/20 12:09 Wound Center Nurse 2 #6 left lateral foot -Time 08:37 -Correct Patient Yes -Correct Side, Site, Position Yes -Correct Procedure Yes -Procedure Performed Yes -Type of Procedure Debridement -Clinical Debridement Subcutaneous -Tissue Removed Subcutaneous -Post Debridement (cm) - Length 0.7 -Post Debridement (cm) - Width 0.9 -Post Debridement (cm) - Depth 0.1 -Total Square (Post) (cm) 0.63 -Area of Debridement (cm) - Length 0.7 -Area of Debridement (cm) - Width 0.9 -Total Square (Area) (cm) 0.63 -Tunneling No -Undermining/Tunneling No -Circular Undermining No -Wound/Ulcer Outcome Not Healed -Ulcer Cleansing Rinsed/ Irrigated with Saline -Foul Odor after Cleansing No -Bioengineered Tissue No -Debridement - Subq, 1st 20sq cm Yes WC - Nurse 3 - General Ulcer D/C NN Start: 12/27/20 07:58 Freq: Status: Active Protocol: Activity Type Activity Date Activity User E-Sign Co-Sign Detail Recorded Client Recorded Date Recorded By Document 12/27/20 12:09 PL [id number] 12/27/20 12:30 PL 12/27/20 12:09 Wound Care Nurse 3 -Ulcer Cleansing Rinsed/ Irrigated with Saline -Foul Odor after Cleansing No -Other Dressing Hydrogel -Primary Dressing Covered/Secured with Dry Gauze & Roll Gauze, Secured with Tape WC - Visit Discharge Discharge Condition Stable Ambulatory Status Ambulatory Clinical Summary of Care Provided Yes Wound debrided: Left lateral foot Laterality: Left Type of Debridement: Excisional debridement Anesthesia Used: 5% Lidocaine Gel Depth: Down to and including healthy tissue and in the subcutaneous layer Percentage of wound debrided: 100 Instrument Used: 3mm curette Tissue Removed: Bioburden Severity: Fat Layer Exposed Amount of bleeding with debridement: Mild Bleeding Controlled with: Compression and gauze Patient tolerated procedure: Patient tolerated procedure well Assessment/Plan Assessment/Plan (1) Venous ulcer of ankle: CODE(S): I83.003 - Varicose veins of unspecified lower extremity with ulcer of ankle; L97.309 - Non-pressure chronic ulcer of unspecified ankle with unspecified severity QUALIFIERS: Varicose vein presence: with varicose veins Laterality: left Non-pressure ulcer stage: with fat layer exposed Qualified Code(s): I83.023 - Varicose veins of left lower extremity with ulcer of ankle; L97.322 - Non-pressure chronic ulcer of left ankle with fat layer exposed (2) Chronic venous insufficiency: CODE(S): I87.2 - Venous insufficiency (chronic) (peripheral) (3) Leg edema: CODE(S): R60.0 - Localized edema (4) Leg swelling: CODE(S): M79.89 - Other specified soft tissue disorders (5) Hancock phlebectatica paraplantaris: CODE(S): R09.89 - Other specified symptoms and signs involving the circulatory and respiratory systems (6) Morbid obesity with BMI of 40.0-44.9, adult: CODE(S): E66.01 - Morbid (severe) obesity due to excess calories; Z68.41 - Body mass index [BMI]40.0-44.9, adult (7) Epilepsy: CODE(S): G40.909 - Epilepsy, unspecified, not intractable, without status epilepticus (8) CHF (congestive heart failure): CODE(S): I50.9 - Heart failure, unspecified (9) Oxygen dependent: CODE(S): Z99.81 - Dependence on supplemental oxygen (10) COPD (chronic obstructive pulmonary disease): CODE(S): J44.9 - Chronic obstructive pulmonary disease, unspecified PLAN: This is a 75-year-old male who presented with an ulceration on the lateral aspect of his left foot/ankle. He has had prior ulcerations at the site in the past. They are thought to be related to the patient's chronic venous disease. Patient experiences swelling and edema in both lower extremities. He sleeps in a recliner. We have implemented conservative treatment measures relative to the patient's chronic venous disease and lower extremity swelling and edema. Patient has been advised to elevate his lower extremities as much as possible. Elevation is to be to heart level, or higher. This is to be achieved as much as possible. The patient has been encouraged to sleep on a flat mattress at night. He has been encouraged to elevate his lower extremities as much as possible even during daytime hours. Activity has been encouraged. Prolonged idle sitting and standing has been discouraged. Weight loss has been recommended. He possesses graduated compression stockings of 30 to 40 mmHg compression, and has been wearing them daily. We are to continue the use of collagen hydrogel topically to the ulceration on the left lateral foot. The ulceration continues to diminish in size. A noninvasive lower extremity arterial study has been performed, revealing no evidence of arterial occlusive disease. A venous duplex examination has also been performed, which reveals incompetence of the left saphenofemoral junction, the left great saphenous vein, 2 accessory saphenous veins, the left small saphenous vein, and an incompetent left calf technician plant and maintenance vein. The results of the studies, and their implications, have been discussed thoroughly with the patient. The patient is to return in 1 week for reevaluation. The patient has also been advised to assure that his shoes are fitted properly, and that there is no pressure or friction from his shoes that may be contributing to the development of ulcerations on his foot. Total time: 28 minutes
== END 2021-01-17 23:59 ==
LOC: WC 08:15
PROVIDERS: Referring Provider Surgery; Visit Provider Surgery
DX: I83.023 Varicose veins of left lower extremity with ulcer of ankle (principal); I87.2 Venous insufficiency (chronic) (peripheral); L97.522 Non-pressure chronic ulcer of other part of left foot with fat layer exposed; L97.322 Non-pressure chronic ulcer of left ankle with fat layer exposed; M79.89 Other specified soft tissue disorders; R09.89 Other specified symptoms and signs involving the circulatory and respiratory systems; G40.909 Epilepsy, unspecified, not intractable, without status epilepticus; I11.0 Hypertensive heart disease with heart failure; I50.9 Heart failure, unspecified; J44.9 Chronic obstructive pulmonary disease, unspecified; E66.01 Morbid (severe) obesity due to excess calories; Z68.41 Body mass index [BMI] 40.0-44.9, adult; Z99.81 Dependence on supplemental oxygen; Z79.82 Long term (current) use of aspirin; Z79.51 Long term (current) use of inhaled steroids; Z79.1 Long term (current) use of non-steroidal anti-inflammatories (NSAID); Z79.899 Other long term (current) drug therapy; Z96.653 Presence of artificial knee joint, bilateral; Z87.891 Personal history of nicotine dependence
CPT/HCPCS: 11042

== ENCOUNTER 2021-02-07 08:45 | Outpatient (RCR) | payer MEDICARE, SELFPAY ==
[2021-01-18 00:36] VITALS: BP 138/72; PULSE 61; RESP 16; TEMP 35.9; BMI 41.6
[2021-01-24 08:34] VITALS: BP 134/69; PULSE 60; RESP 18; TEMP 36.8; BMI 41.6
--- NOTE | 2021-01-24 09:19 | PN.PCM_ITS ---
History of Present Illness Date of Service: 01/24/21 Chief Complaint: Ulceration of the left lateral foot History of Wound: This is a 75-year-old male who presented with an ulceration on the lateral aspect of his left foot, just inferior to his left lateral malleolus. Had been present for approximately 2 weeks. However, the patient has previously had an ulcer at this site in the past. He has been treated at our facility for such. His previous ulceration was healed by conservative means. Patient is ambulatory. He experiences swelling and edema in his lower extremities bilaterally, which is worse by the end of the day. He claims to sleep in a recliner. Medical history includes chronic obstructive pulmonary disease, congestive heart failure, hypertension, chronic venous insufficiency, obesity, and epilepsy. The patient is also known to be oxygen dependent, using 3 L of oxygen per nasal cannula as a baseline, and sometimes even higher amounts. Review of the patient's past records reveals a noninvasive lower extremity arterial study in 2013 which revealed no evidence of arterial occlusive disease in the patient's lower extremities. Of note, the patient underwent bilateral lower extremity venous procedures in 2017, though he has no recollection of what procedures were performed, nor the physician who performed them. Patient has also undergone prior bilateral knee replacement surgeries, and several lumbar disc surgeries in the past. The patient claims to possess graduated compression stockings, which he has not been wearing recently. He is uncertain as to the degree of compression. Progress of Wound: stable Subjective Subjective Patient seen and examined resting comfortably. Patient denies any new pedal complaints. Patient denies any nausea, fever, chills, chest pain, shortness of breath, cough, streaking, purulence, vomiting. Objective Data Objective Data Vital Signs: Vital Signs Temp Pulse Resp BP 98.3 F 60 18 134/69 H 01/24/21 08:34 01/24/21 08:34 01/24/21 08:34 01/24/21 08:34 Oxygen Flow Rate (L/min) 6 Oxygen Delivery Method Nasal Cannula Weight: 122.47 kg Body Mass Index (BMI) 41.6 Physical Exam Const alert and no apparent distress General Appearance: cooperative and comfortable HEENT Head and Scalp: atraumatic Lymph Lymphatic: no lymphedema noted Resp normal respiratory effort Effort and Inspection: able to speak in complete sentences Extremity normal capillary refill and no calf tenderness General Extremity: edema bilateral lower extremity, no tenderness to palpation of joints or extremities and other findings Other Details: Capillary refill time less than 3 seconds noted to digits ; Negative for clubbing or cyanosis Peripheral Pulses: Yes posterior tibial pulses present bilateral 2+ and dorsalis pedis pulses present bilateral 2+ Skin General Skin Exam: atrophy and dry skin; Negative for ecchymosis, erythema, eschar, pallor or dermatitis Rashes: no rashes Wounds: wounds noted Wound Narrative: ulcers noted to lateral left heel inferior to lateral malleolus No malodor, erythema, purulence, probing to bone, streaking, fluctuation, crepitus, or other signs of infection. Skin is atrophic and hairless. Granular base. Minimal serous drainage. Bunion deformity noted bilaterally. Right foot dorsal midfoot exostosis with fluctuant semi-mobile well-defined fluid area consistent with a cyst. Neuro Gait (Neuro): normal gait Sensory Exam: extremities light-touch: normal Motor Exam: strength 5/5 throughout Psych Appearance: appropriate Attitude: calm Debridement Note Debridement Note Post-Debridement Measurements and Additional Note: Post-Debridement Measurements/Treatment - Nurse 1 - General Ulcer Assessment Start: 01/24/21 08:33 Freq: Status: Active Protocol: [email or web address] Activity Type Activity Date Activity User E-Sign Co-Sign Detail Recorded Client Recorded Date Recorded By Document 01/24/21 08:34 [facility] [id number] 01/24/21 08:39 [facility] 01/24/21 08:34 - Today's Visit Information Type of service Follow-up Visit (Physician/TECHNICIAN ANATOMIC PATHOLOGY ) Arrival Mode Ambulatory Transfer Assistance None Patient Identification Verified (Name & Yes ) Patient Requires Transmission-Based No Precautions Height and Weight Body Mass Index (BMI) 41.6 BMI Classification Obese Vital Signs Temperature (97.8 F-99.1 F) 98.3 F Temperature Source Temporal Pulse Rate (60-100) 60 Pulse Location Monitor Respiratory Rate (12-18) 18 Respiratory rate source Observation Oxygen Delivery Method Nasal Cannula Blood Pressure (90/60-120/80) 134/69 H Blood Pressure Mean (mm Hg) 90 Source Monitor Position Sitting Blood Pressure Location Right Arm History Since Last Visit- (Skip if this is Patient's initial visit) Have you changed medications since your No last visit? Any new allergies or adverse reactions No Had a fall/change in ADL's that may No increase risk of falls Signs or symptoms of abuse and/or No neglect since last visit Have you been in the hospital since your No last visit? Has dressing in place as prescribed Yes Has compression in place as prescribed Yes Has offloadiing in place as prescribed N/A Experienced any changes in pain level or No management Left Footwear Regular Shoe Right Footwear Regular Shoe Pain Scale: 0-10 Numeric Is Patient Pain Free? Yes WC - Nurse 1 - General Ulcer Measurement Start: 01/24/21 08:33 Freq: Status: Active Protocol: Activity Type Activity Date Activity User E-Sign Co-Sign Detail Recorded Client Recorded Date Recorded By Document 01/24/21 08:34 [facility] [id number] 01/24/21 08:39 BM 01/24/21 08:34 Wound Center Nurse 1 #6 left lateral foot -Combined with other wound No -Current Size (cm) - Length 0.1 -Current Size (cm) - Width 0.1 -Current Size (cm) - Depth 0.1 -Total Square Cm 0.01 -Photo Taken No -Tunneling No -Undermining/Tunneling No -Circular Undermining No -Exudate Amt Small -Exudate Type Serous -Wound Margin Flat & Intact -Granulation Amt None Present (0 %) -Granulation Quality N/A -Slough/Fibrin Yes -Necrosis Amt Small (1-33%) -Necrotic Tissue Type Adherent Slough -Structure Exposed N/A -Texture (Patti-wound Skin Appearance) Assessed, Localized Edema -Moisture (Patti-wound Skin Appearance) Assessed -Color (Patti-wound Skin Appearance) No Abnormality, Assessed -Temperature (Patti-wound Skin No Abnormality Appearance) (Pt Warm) -Tenderness on Palpation (Patti-wound Yes Skin Appearance) -Ulcer Cleansing Rinsed/ Irrigated with Saline -Foul Odor after Cleansing No -Anesthetic Used 5% Lidocaine Gel Lower Limb Edema Present No WC - Nurse 2 - General Ulcer CM Notes Start: 01/24/21 08:33 Freq: Status: Active Protocol: Activity Type Activity Date Activity User E-Sign Co-Sign Detail Recorded Client Recorded Date Recorded By Document 01/24/21 09:12 MW [id number] 01/24/21 09:17 MW 01/24/21 09:12 Wound Center Nurse 2 #6 left lateral foot -Time 09:14 -Correct Patient Yes -Correct Side, Site, Position Yes -Correct Procedure Yes -Procedure Performed No -Tunneling No -Undermining/Tunneling No -Circular Undermining No -Wound/Ulcer Outcome Not Healed -Ulcer Cleansing Rinsed/ Irrigated with Saline -Foul Odor after Cleansing No -Bioengineered Tissue No -Bleeding Controlled with NA -Offloading No Pain Scale: 0-10 Numeric Is Patient Pain Free? 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: CODE(S): L97.521 - Non-pressure chronic ulcer of other part of left foot limited to breakdown of skin (2) Ganglion cyst of right foot: CODE(S): M67.471 - Ganglion, right ankle and foot (3) Peripheral vascular disease of lower extremity with ulceration: CODE(S): I73.9 - Peripheral vascular disease, unspecified; L97.909 - Non- pressure chronic ulcer of unspecified part of unspecified lower leg with unspecified severity (4) Chronic venous insufficiency: CODE(S): I87.2 - Venous insufficiency (chronic) (peripheral) (5) Morbid obesity with BMI of 40.0-44.9, adult: CODE(S): E66.01 - Morbid (severe) obesity due to excess calories; Z68.41 - Body mass index [BMI]40.0-44.9, adult (6) CHF (congestive heart failure): CODE(S): I50.9 - Heart failure, unspecified (7) Oxygen dependent: CODE(S): Z99.81 - Dependence on supplemental oxygen (8) COPD (chronic obstructive pulmonary disease): CODE(S): J44.9 - Chronic obstructive pulmonary disease, unspecified (9) Leg edema: CODE(S): R60.0 - Localized edema (10) Peripheral vascular occlusive disease: CODE(S): I73.9 - Peripheral vascular disease, unspecified PLAN: Patient seen and examined This is a 75-year-old male who presented with an ulceration on the lateral aspect of his left foot/ankle. He has had prior ulcerations at the site in the past. They are thought to be related to the patient's chronic venous disease. Patient experiences swelling and edema in both lower extremities. He sleeps in a recliner. We have implemented conservative treatment measures relative to the patient's chronic venous disease and lower extremity swelling and edema. Patient has been advised to elevate his lower extremities as much as possible. Elevation is to be to heart level, or higher. This is to be achieved as much as possible. The patient has been encouraged to sleep on a flat mattress at night. He has been encouraged to elevate his lower extremities as much as poss ible even during daytime hours. Activity has been encouraged. Prolonged idle sitting and standing has been discouraged. Weight loss has been recommended. He possesses graduated compression stockings of 30 to 40 mmHg compression, and has been wearing them daily. We are to continue the use of collagen hydrogel topically to the ulceration on the left lateral foot. The ulceration continues to diminish in size. This is to be covered with dry sterile dressing and compression socks. This to be changed daily. Patient is to wash with soap and water first. A noninvasive lower extremity arterial study has been performed, revealing no evidence of arterial occlusive disease. A venous duplex examination has also been performed, which reveals incompetence of the left saphenofemoral junction, the left great saphenous vein, 2 accessory saphenous veins, the left small saphenous vein, and an incompetent left calf hospitality housekeeper vein. The results of the studies, and their implications, have been discussed thoroughly with the patient. The patient has also been advised to assure that his shoes are fitted properly, and that there is no pressure or friction from his shoes that may be contribu ting to the development of ulcerations on his foot. Discussed that the bump on his right dorsal midfoot seems to be consistent with a ganglion cyst especially giving his clinical history and exam findings. Discussed the way to confirm this diagnosis would be a biopsy of the fluid within the cyst. Patient refuses at this time. Discussed etiology and treatment options. Patient relates he is not having pain with this as the mass falls between the fastening's of his shoe so there is no increase in pressure. Discussed monitoring and to contact if any questions or concerns or if he wishes to have this worked up further. All questions answered The patient is to return in 2 weeks for reevaluation with Dr. Aguilar. The problems addressed require a low medical decision making level which in cludes two or more minor problems, a stable chronic illness, or an acute uncomplicated illness or injury. This note was generated with [employer] software. It may contain incorrect words, spelling, and punctuation that were not noted in checking the note before signing.
[2021-02-07 08:50] VITALS: BP 121/59; PULSE 61; TEMP 36.6; BMI 41.6
--- NOTE | 2021-02-07 09:16 | PCM.WC.HP ---
History of Present Illness Date of Service: 02/07/21 Chief Complaint: Ulceration of the left lateral foot History of Wound: This is a 75-year-old male who presented with an ulceration on the lateral aspect of his left foot, just inferior to his left lateral malleolus. Had been present for approximately 2 weeks. However, the patient has previously had an ulcer at this site in the past. He has been treated at our facility for such. His previous ulceration was healed by conservative means. Patient is ambulatory. He experiences swelling and edema in his lower extremities bilaterally, which is worse by the end of the day. He claims to sleep in a recliner. Medical history includes chronic obstructive pulmonary disease, congestive heart failure, hypertension, chronic venous insufficiency, obesity, and epilepsy. The patient is also known to be oxygen dependent, using 3 L of oxygen per nasal cannula as a baseline, and sometimes even higher amounts. Review of the patient's past records reveals a noninvasive lower extremity arterial study in 2013 which revealed no evidence of arterial occlusive disease in the patient's lower extremities. Of note, the patient underwent bilateral lower extremity venous procedures in 2017, though he has no recollection of what procedures were performed, nor the physician who performed them. Patient has also undergone prior bilateral knee replacement surgeries, and several lumbar disc surgeries in the past. The patient claims to possess graduated compression stockings, which he has not been wearing recently. He is uncertain as to the degree of compression. Progress of Wound: stable [facility] Medical History CHF (congestive heart failure) Chronic venous insufficiency COPD (chronic obstructive pulmonary disease) Hancock phlebectatica paraplantaris Epilepsy Leg edema Leg swelling Morbid obesity with BMI of 40.0-44.9, adult Oxygen dependent Venous ulcer of ankle Home Medications B complex with C 20-folic acid [Nephrocaps Softgel] 1 mg PO DAILY 12/04/13 [History Last Taken Unknown] aspirin 325 mg PO DAILY 12/04/13 [History Last Taken Unknown] naproxen sodium [Naprelan CR] 500 mg PO Q6H PRN PRN 12/04/13 [History Last Taken Unknown] phenytoin sodium extended 600 mg PO TID 12/04/13 [History Last Taken Unknown] sertraline 100 mg PO DAILY 12/04/13 [History Last Taken Unknown] timolol maleate 1 drp EACH EYE BID 12/04/13 [History Last Taken Unknown] budesonide [Pulmicort Flexhaler 90 mcg] 1 puff INHALATION BID 03/15/17 [History Last Taken Unknown] carvedilol [Coreg] 6.25 mg PO BID 03/15/17 [History Last Taken Unknown] cholecalciferol (vitamin D3) [Vitamin D3] 1,000 unit PO DAILY 03/15/17 [History Last Taken Unknown] gemfibrozil 600 mg PO BIDAC 03/15/17 [History Last Taken Unknown] melatonin 3 mg PO PRN PRN 03/15/17 [History Last Taken Unknown] oxycodone-acetaminophen 1 tab PO PRN PRN 03/15/17 [History Last Taken Unknown] sildenafil [Viagra] 100 mg PO PRN PRN 03/15/17 [History Last Taken Unknown] spironolactone 50 mg PO DAILY 03/15/17 [History Last Taken Unknown] torsemide [Demadex] 40 mg PO DAILY 03/15/17 [History Last Taken Unknown] sertraline 100 mg PO DAILY 11/08/20 [History Last Taken Unknown] Allergy/AdvReac Type Severity Reaction Status Date / Time silver sulfadiazine Allergy Severe Rash and Verified 01/25/14 09:47 swelling adhesive Allergy Rash Verified 03/15/17 11:26 Social History Smoking Status: Former smoker Vital Signs Vital Signs Vital Signs: 02/07/21 08:50 Temperature 97.9 F Temperature Source Temporal Pulse Rate 61 Blood Pressure 121/59 H Blood Pressure Mean 79 Blood Pressure Source Monitor Weight Weight: 270 lb Body Mass Index (BMI) 41.6 Physical Exam Const alert, oriented x3, no apparent distress and well nourished Constitutional Narrative: The patient is morbidly obese. General Appearance: cooperative, comfortable and well developed Orientation / Consciousness: awake, oriented to person, oriented to place and oriented to time HEENT normocephalic and head/scalp atraumatic Head and Scalp: normal to inspection, normocephalic and atraumatic External Ear: external ears normal Eyes PERRL and EOMs intact bilaterally General Eye: normal appearance of both eyes Resp normal respiratory effort, normal air movement, no retractions and no use of accessory muscles Effort and Inspection: able to speak in complete sentences Extremity no calf tenderness Extremity Narrative: Left lower extremity swelling and edema appears to be reasonably well controlled. General Extremity: Negative for clubbing or cyanosis Skin Wound Narrative: The ulceration on the left lateral foot, just inferior to the left lateral malleolus, is smaller in size. Dimensions are documented elsewhere. There is no sign of infection or cellulitis. There is a small amount of bioburden. Neuro oriented x3 and CN's II-XII intact bilaterally Sensorium / Orientation: awake, alert, oriented to person, oriented to place and oriented to time Psych Appearance: grossly normal and appropriate Attitude: calm Activity / Motor Behavior: appropriate eye contact Speech: normal speech Mood & Affect: euthymic mood Thought Process: normal thought process Thought Content: normal thought content Attention / Concentration: attention grossly intact Debridement Note Debridement Note Wound debrided: Left lateral malleolus Laterality: Left Type of Debridement: Excisional debridement Anesthesia Used: 5% Lidocaine Gel Depth: Down to and including healthy tissue and in the subcutaneous layer Percentage of wound debrided: 100 Instrument Used: 3mm curette Tissue Removed: Bioburden Severity: Fat Layer Exposed Amount of bleeding with debridement: Mild Bleeding Controlled with: Compression and gauze Patient tolerated procedure: Patient tolerated procedure well Post-Debridement Measurements and Additional Note: Post-Debridement Measurements/Treatment - Nurse 1 - General Ulcer Assessment Start: 01/24/21 08:33 Freq: Status: Active Protocol: [email or web address] Activity Type Activity Date Activity User E-Sign Co-Sign Detail Recorded Client Recorded Date Recorded By Document 01/24/21 08:34 [facility] [id number] 01/24/21 08:39 [facility] Document 02/07/21 08:50 [id number] 02/07/21 08:52 01/24/21 02/07/21 08:34 08:50 - Today's Visit Information Type of service Follow-up Visit Follow-up Visit (Physician/HUMAN SERVICES CARE SPECIALIST (Physician/HUMAN SERVICES CARE SPECIALIST ) ) Arrival Mode Ambulatory Ambulatory Transfer Assistance None Patient Identification Verified (Name & Yes Yes ) Patient Requires Transmission-Based No No Precautions Safety Precautions NA Height and Weight Body Mass Index (BMI) 41.6 41.6 BMI Classification Obese Obese Vital Signs Temperature (97.8 F-99.1 F) 98.3 F 97.9 F Temperature Source Temporal Temporal Pulse Rate (60-100) 60 61 Pulse Location Monitor Monitor Respiratory Rate (12-18) 18 Respiratory rate source Observation Oxygen Delivery Method Nasal Cannula Blood Pressure (90/60-120/80) 134/69 H 121/59 H Blood Pressure Mean 90 79 Source Monitor Monitor Position Sitting Blood Pressure Location Right Arm History Since Last Visit- (Skip if this is Patient's initial visit) Have you changed medications since your No No last visit? Any new allergies or adverse reactions No No Had a fall/change in ADL's that may No No increase risk of falls Signs or symptoms of abuse and/or No No neglect since last visit Have you been in the hospital since your No No last visit? Has dressing in place as prescribed Yes Yes Has compression in place as prescribed Yes N/A Has offloadiing in place as prescribed N/A N/A Experienced any changes in pain level or No No management Left Footwear Regular Shoe Regular Shoe Right Footwear Regular Shoe Regular Shoe Pain Scale: 0-10 Numeric Is Patient Pain Free? Yes WC - Nurse 1 - General Ulcer Measurement Start: 01/24/21 08:33 Freq: Status: Active Protocol: Activity Type Activity Date Activity User E-Sign Co-Sign Detail Recorded Client Recorded Date Recorded By Document 01/24/21 08:34 [facility] [id number] 01/24/21 08:39 [facility] Document 02/07/21 08:50 [id number] 02/07/21 08:52 01/24/21 02/07/21 08:34 08:50 Wound Center Nurse 1 #6 left lateral foot -Combined with other wound No No -Current Size (cm) - Length 0.1 0.2 -Current Size (cm) - Width 0.1 0.3 -Current Size (cm) - Depth 0.1 0.1 -Total Square Cm 0.01 0.06 -Photo Taken No No -Tunneling No No -Undermining/Tunneling No No -Circular Undermining No No -Change in Wound Grade/Stage No -Exudate Amt Small Medium -Exudate Type Serous Serosanguineous -Wound Margin Flat & Intact Distinct, Outline Attached -Granulation Amt None Present (0 None Present (0 %) %) -Granulation Quality N/A N/A -Slough/Fibrin Yes No -Necrosis Amt Small (1-33%) Small (1-33%) -Necrotic Tissue Type Adherent Slough Adherent Slough -Structure Exposed N/A N/A -Texture (Patti-wound Skin Appearance) Assessed, No Abnormality, Localized Edema Assessed -Moisture (Patti-wound Skin Appearance) Assessed No Abnormality, Assessed -Color (Patti-wound Skin Appearance) No Abnormality, No Abnormality, Assessed Assessed -Temperature (Patti-wound Skin No Abnormality No Abnormality Appearance) (Pt Warm) (Pt Warm) -Tenderness on Palpation (Patti-wound Yes Yes Skin Appearance) -Ulcer Cleansing Rinsed/ Rinsed/ Irrigated with Irrigated with Saline Saline -Foul Odor after Cleansing No No -Anesthetic Used 5% Lidocaine 5% Lidocaine Gel Gel Lower Limb Edema Present No WC - Nurse 2 - General Ulcer CM Notes Start: 01/24/21 08:33 Freq: Status: Active Protocol: Activity Type Activity Date Activity User E-Sign Co-Sign Detail Recorded Client Recorded Date Recorded By Document 01/24/21 09:12 MW [id number] 01/24/21 09:17 MW 01/24/21 09:12 Wound Center Nurse 2 -Time 09:14 -Correct Patient Yes -Correct Side, Site, Position Yes -Correct Procedure Yes -Procedure Performed No -Tunneling No -Undermining/Tunneling No -Circular Undermining No -Wound/Ulcer Outcome Not Healed -Ulcer Cleansing Rinsed/ Irrigated with Saline -Foul Odor after Cleansing No -Bioengineered Tissue No -Bleeding Controlled with NA -Offloading No Pain Scale: 0-10 Numeric Is Patient Pain Free? Yes - Nurse 3 - General Ulcer D/C NN Start: 01/24/21 08:33 Freq: Status: Active Protocol: Activity Type Activity Date Activity User E-Sign Co-Sign Detail Recorded Client Recorded Date Recorded By Document 01/24/21 09:24 [facility] [id number] 01/24/21 09:25 [facility] 01/24/21 09:24 Wound Care Nurse 3 #6 left lateral foot -Ulcer Cleansing Rinsed/ Irrigated with Saline -Foul Odor after Cleansing No -Primary Dressing Applied C Hydrogel ($) -Primary Dressing Covered/Secured with Dry Gauze, Secured with Tape YURI -Other PT APPLIED OWN COMPRESSION STOCKINGS Pain Scale: 0-10 Numeric Is Patient Pain Free? 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: CODE(S): L97.521 - Non-pressure chronic ulcer of other part of left foot limited to breakdown of skin (2) Hancock phlebectatica paraplantaris: CODE(S): R09.89 - Other specified symptoms and signs involving the circulatory and respiratory systems (3) Morbid obesity with BMI of 40.0-44.9, adult: CODE(S): E66.01 - Morbid (severe) obesity due to excess calories; Z68.41 - Body mass index [BMI]40.0-44.9, adult (4) Venous ulcer of ankle: CODE(S): I83.003 - Varicose veins of unspecified lower extremity with ulcer of ankle; L97.309 - Non-pressure chronic ulcer of unspecified ankle with unspecified severity QUALIFIERS: Varicose vein presence: with varicose veins Laterality: left Non-pressure ulcer stage: with fat layer exposed Qualified Code(s): I83.023 - Varicose veins of left lower extremity with ulcer of ankle; L97.322 - Non-pressure chronic ulcer of left ankle with fat layer exposed (5) Epilepsy: CODE(S): G40.909 - Epilepsy, unspecified, not intractable, without status epilepticus (6) CHF (congestive heart failure): CODE(S): I50.9 - Heart failure, unspecified (7) Oxygen dependent: CODE(S): Z99.81 - Dependence on supplemental oxygen (8) COPD (chronic obstructive pulmonary disease): CODE(S): J44.9 - Chronic obstructive pulmonary disease, unspecified (9) Leg edema: CODE(S): R60.0 - Localized edema (10) Leg swelling: CODE(S): M79.89 - Other specified soft tissue disorders (11) Chronic venous insufficiency: CODE(S): I87.2 - Venous insufficiency (chronic) (peripheral) (12) Peripheral vascular disease of lower extremity with ulceration: CODE(S): I73.9 - Peripheral vascular disease, unspecified; L97.909 - Non-pressure chronic ulcer of unspecified part of unspecified lower leg with unspecified severity (13) Peripheral vascular disease of lower extremity with ulceration: CODE(S): I73.9 - Peripheral vascular disease, unspecified; L97.909 - Non-pressure chronic ulcer of unspecified part of unspecified lower leg with unspecified severity (14) Atherosclerotic peripheral vascular disease with ulceration: CODE(S): I70.209 - Unspecified atherosclerosis of [place] arteries of extremities, unspecified extremity; L98.499 - Non-pressure chronic ulcer of skin of other sites with unspecified severity QUALIFIERS: Peripheral atherosclerosis location: lower extremity (15) Peripheral vascular occlusive disease: CODE(S): I73.9 - Peripheral vascular disease, unspecified PLAN: This is a 75-year-old male who presented with an ulceration on the lateral aspect of his left foot/ankle. He has had prior ulcerations at the site in the past. They are thought to be related to the patient's chronic venous disease. Patient experiences swelling and edema in both lower extremities. He sleeps in a recliner. We have implemented conservative treatment measures relative to the patient's chronic venous disease and lower extremity swelling and edema. Patient has been advised to elevate his lower extremities as much as possible. Elevation is to be to heart level, or higher. This is to be achieved as much as possible. The patient has been encouraged to sleep on a flat mattress at night. He has been encouraged to elevate his lower extremities as much as possible even during daytime hours. Activity has been encouraged. Prolonged idle sitting and standing has been discouraged. Weight loss has been recommended. He possesses graduated compression stockings of 30 to 40 mmHg compression, and has been wearing them daily. We are to continue the use of collagen hydrogel topically to the ulceration on the left lateral foot. The ulceration continues to diminish in size. A noninvasive lower extremity arterial study has been performed, revealing no evidence of arterial occlusive disease. A venous duplex examination has also been performed, which reveals incompetence of the left saphenofemoral junction, the left great saphenous vein, 2 accessory saphenous veins, the left small saphenous vein, and an incompetent left calf internet project manager vein. The results of the studies, and their implications, have been discussed thoroughly with the patient. The patient is to return in 1 week for reevaluation. The patient has also been advised to assure that his shoes are fitted properly, and that there is no pressure or friction from his shoes that may be contributing to the development of ulcerations on his foot. Total time: 29 minutes
== END 2021-02-16 23:59 ==
LOC: WC 08:45
PROVIDERS: Referring Provider Surgery; Visit Provider Surgery
DX: I83.023 Varicose veins of left lower extremity with ulcer of ankle (principal); I70.25 Atherosclerosis of native arteries of other extremities with ulceration; L97.322 Non-pressure chronic ulcer of left ankle with fat layer exposed; L97.421 Non-pressure chronic ulcer of left heel and midfoot limited to breakdown of skin; M67.471 Ganglion, right ankle and foot; M21.612 Bunion of left foot; M21.611 Bunion of right foot; M79.89 Other specified soft tissue disorders; R60.0 Localized edema; J44.9 Chronic obstructive pulmonary disease, unspecified; I11.0 Hypertensive heart disease with heart failure; I50.9 Heart failure, unspecified; G40.909 Epilepsy, unspecified, not intractable, without status epilepticus; E66.01 Morbid (severe) obesity due to excess calories; Z68.41 Body mass index [BMI] 40.0-44.9, adult; Z99.81 Dependence on supplemental oxygen; Z79.82 Long term (current) use of aspirin; Z79.51 Long term (current) use of inhaled steroids; Z87.891 Personal history of nicotine dependence; Z96.653 Presence of artificial knee joint, bilateral
CPT/HCPCS: 11042; 99213; G0463

== ENCOUNTER 2021-02-21 08:45 | Outpatient (RCR) | payer MEDICARE, SELFPAY ==
[2021-02-17 00:28] VITALS: BP 121/59; PULSE 61; RESP 18; TEMP 36.6; BMI 41.6
[2021-02-21 08:38] VITALS: BP 143/58; PULSE 68; TEMP 36.1; BMI 41.6
--- NOTE | 2021-02-21 09:06 | HP.PCM_ITS ---
History of Present Illness Date of Service: 02/21/21 Chief Complaint: Ulceration of the left lateral foot History of Wound: This is a 75-year-old male who presented with an ulceration on the lateral aspect of his left foot, just inferior to his left lateral malleolus. Had been present for approximately 2 weeks. However, the patient has previously had an ulcer at this site in the past. He has been treated at our facility for such. His previous ulceration was healed by conservative means. Patient is ambulatory. He experiences swelling and edema in his lower extremities bilaterally, which is worse by the end of the day. He claims to sleep in a recliner. Medical history includes chronic obstructive pulmonary disease, congestive heart failure, hypertension, chronic venous insufficiency, obesity, and epilepsy. The patient is also known to be oxygen dependent, using 3 L of oxygen per nasal cannula as a baseline, and sometimes even higher amounts. Review of the patient's past records reveals a noninvasive lower extremity arterial study in 2013 which revealed no evidence of arterial occlusive disease in the patient's lower extremities. Of note, the patient underwent bilateral lower extremity venous procedures in 2017, though he has no recollection of what procedures were performed, nor the physician who performed them. Patient has also undergone prior bilateral knee replacement surgeries, and several lumbar disc surgeries in the past. The patient claims to possess graduated compression stockings, which he has not been wearing recently. He is uncertain as to the degree of compression. FORMERLY [facility], [facility] Medical History CHF (congestive heart failure) Chronic venous insufficiency COPD (chronic obstructive pulmonary disease) Hancock phlebectatica paraplantaris Epilepsy Leg edema Leg swelling Morbid obesity with BMI of 40.0-44.9, adult Oxygen dependent Venous ulcer of ankle Home Medications B complex with C 20-folic acid [Nephrocaps Softgel] 1 mg PO DAILY 12/04/13 [History Last Taken Unknown] aspirin 325 mg PO DAILY 12/04/13 [History Last Taken Unknown] naproxen sodium [Naprelan CR] 500 mg PO Q6H PRN PRN 12/04/13 [History Last Taken Unknown] phenytoin sodium extended 600 mg PO TID 12/04/13 [History Last Taken Unknown] sertraline 100 mg PO DAILY 12/04/13 [History Last Taken Unknown] timolol maleate 1 drp EACH EYE BID 12/04/13 [History Last Taken Unknown] budesonide [Pulmicort Flexhaler 90 mcg] 1 puff INHALATION BID 03/15/17 [History Last Taken Unknown] carvedilol [Coreg] 6.25 mg PO BID 03/15/17 [History Last Taken Unknown] cholecalciferol (vitamin D3) [Vitamin D3] 1,000 unit PO DAILY 03/15/17 [History Last Taken Unknown] gemfibrozil 600 mg PO BIDAC 03/15/17 [History Last Taken Unknown] melatonin 3 mg PO PRN PRN 03/15/17 [History Last Taken Unknown] oxycodone-acetaminophen 1 tab PO PRN PRN 03/15/17 [History Last Taken Unknown] sildenafil [Viagra] 100 mg PO PRN PRN 03/15/17 [History Last Taken Unknown] spironolactone 50 mg PO DAILY 03/15/17 [History Last Taken Unknown] torsemide [Demadex] 40 mg PO DAILY 03/15/17 [History Last Taken Unknown] sertraline 100 mg PO DAILY 11/08/20 [History Last Taken Unknown] Allergy/AdvReac Type Severity Reaction Status Date / Time silver sulfadiazine Allergy Severe Rash and Verified 01/25/14 09:47 swelling adhesive Allergy Rash Verified 03/15/17 11:26 Social History Smoking Status: Former smoker Vital Signs Vital Signs Vital Signs: 02/21/21 08:38 Temperature 96.9 F L Temperature Source Temporal Pulse Rate 68 Blood Pressure 143/58 H Blood Pressure Mean 86 Blood Pressure Source Monitor Weight Weight: 270 lb Body Mass Index (BMI) 41.6 Physical Exam Const alert, oriented x3, no apparent distress and well nourished General Appearance: cooperative and well developed Orientation / Consciousness: awake, oriented to person, oriented to place and oriented to time HEENT normocephalic and head/scalp atraumatic Head and Scalp: normal to inspection, normocephalic and atraumatic External Ear: external ears normal Eyes PERRL and EOMs intact bilaterally General Eye: normal appearance of both eyes Resp normal respiratory effort, normal air movement, no retractions and no use of accessory muscles Effort and Inspection: able to speak in complete sentences Extremity no calf tenderness Extremity Narrative: Mild hyperpigmentation is noted in the left gaiter area. There is no significant swelling or edema in the patient's left lower extremity. General Extremity: Negative for clubbing or cyanosis Skin Wound Narrative: The ulceration near the left lateral malleolus is now completely healed and epithelialized. Neuro oriented x3, CN's II-XII intact bilaterally and moves all extremities Sensorium / Orientation: awake, alert, oriented to person, oriented to place and oriented to time Psych Appearance: grossly normal and appropriate Attitude: calm Activity / Motor Behavior: appropriate eye contact Speech: normal speech Mood & Affect: euthymic mood Thought Process: normal thought process Thought Content: normal thought content Attention / Concentration: attention grossly intact Debridement Note Debridement Note No debridement was completed: No debridement was completed today (The patient's ulceration is now completely healed and epithelialized.) Post-Debridement Measurements and Additional Note: Post-Debridement Measurements/Treatment WC - Nurse 1 - General Ulcer Assessment Start: 02/21/21 08:38 Freq: Status: Active Protocol: REUBEN Activity Type Activity Date Activity User E-Sign Co-Sign Detail Recorded Client Recorded Date Recorded By Document 02/21/21 08:38 SD [id number] 02/21/21 08:44 AK 02/21/21 08:38 WC - Today's Visit Information Type of service Follow-up Visit (Physician/[employer] ) Arrival Mode Ambulatory,Cane Patient Identification Verified (Name & Yes ) Patient Requires Transmission-Based No Precautions Safety Precautions NA Height and Weight Body Mass Index (BMI) 41.6 BMI Classification Obese Vital Signs Temperature (97.8 F-99.1 F) 96.9 F L Temperature Source Temporal Pulse Rate (60-100) 68 Pulse Location Monitor Blood Pressure (90/60-120/80) 143/58 H Blood Pressure Mean 86 Source Monitor History Since Last Visit- (Skip if this is Patient's initial visit) Have you changed medications since your No last visit? Any new allergies or adverse reactions No Had a fall/change in ADL's that may No increase risk of falls Signs or symptoms of abuse and/or No neglect since last visit Have you been in the hospital since your No last visit? Has dressing in place as prescribed Yes Has compression in place as prescribed Yes Has offloadiing in place as prescribed N/A Experienced any changes in pain level or No management Left Footwear Regular Shoe Right Footwear Regular Shoe - Nurse 1 - General Ulcer Measurement Start: 02/21/21 08:38 Freq: Status: Active Protocol: Activity Type Activity Date Activity User E-Sign Co-Sign Detail Recorded Client Recorded Date Recorded By Document 02/21/21 08:38 YADY [id number] 02/21/21 08:44 YADY 02/21/21 08:38 Wound Center Nurse 1 #6 left lateral foot -Combined with other wound No -Current Size (cm) - Length 0.1 -Current Size (cm) - Width 0.1 -Current Size (cm) - Depth 0.1 -Total Square Cm 0.01 -Photo Taken No -Epithelialization None Present -Tunneling No -Undermining/Tunneling No -Circular Undermining No -Change in Wound Grade/Stage No -Exudate Amt None Present -Granulation Amt None Present (0 %) -Granulation Quality N/A -Slough/Fibrin No -Necrosis Amt None Present (0 %) -Structure Exposed N/A -Texture (Patti-wound Skin Appearance) No Abnormality, Assessed -Moisture (Patti-wound Skin Appearance) No Abnormality, Assessed -Color (Patti-wound Skin Appearance) No Abnormality, Assessed -Temperature (Patti-wound Skin No Abnormality Appearance) (Pt Warm) -Tenderness on Palpation (Patti-wound No Skin Appearance) Right Calf (cm) 41.5 Right Ankle (cm) 25 Assessment/Plan Assessment/Plan (1) Venous ulcer of ankle: CODE(S): I83.003 - Varicose veins of unspecified lower extremity with ulcer of ankle; L97.309 - Non-pressure chronic ulcer of unspecified ankle with unspecified severity QUALIFIERS: Varicose vein presence: with varicose veins Laterality: left Non-pressure ulcer stage: with fat layer exposed Qualified Code(s): I83.023 - Varicose veins of left lower extremity with ulcer of ankle; L97.322 - Non-pressure chronic ulcer of left ankle with fat layer exposed (2) 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: CODE(S): L97.521 - Non-pressure chronic ulcer of other part of left foot limited to breakdown of skin (3) Hancock phlebectatica paraplantaris: CODE(S): R09.89 - Other specified symptoms and signs involving the circulatory and respiratory systems (4) Chronic venous insufficiency: CODE(S): I87.2 - Venous insufficiency (chronic) (peripheral) (5) Morbid obesity with BMI of 40.0-44.9, adult: CODE(S): E66.01 - Morbid (severe) obesity due to excess calories; Z68.41 - Body mass index [BMI] 40.0-44.9, adult (6) Epilepsy: CODE(S): G40.909 - Epilepsy, unspecified, not intractable, without status epilepticus (7) Oxygen dependent: CODE(S): Z99.81 - Dependence on supplemental oxygen (8) COPD (chronic obstructive pulmonary disease): CODE(S): J44.9 - Chronic obstructive pulmonary disease, unspecified (9) Leg edema: CODE(S): R60.0 - Localized edema (10) Leg swelling: CODE(S): M79.89 - Other specified soft tissue disorders PLAN: This is a 75-year-old male who presented with an ulceration near the left lateral malleolus. Patient has had prior ulcerations at this site in the past. The ulceration appears to be related to the patient's chronic venous disease. The patient also has a history of swelling and edema in both lower extremities. As of today's visit, the patient's ulceration is completely healed and epithelialized. He is to be discharged, with follow-up on an as-needed basis. The patient has in his possession graduated compression stockings of 30 to 40mmHg compression, and has been advised to continue wearing on a daily basis. In addition, we have implemented conservative treatment measures, including leg elevation, avoidance of idle standing and sitting, active lifestyle, and advisement to lose weight. In addition, the patient has been advised to assure that his foot wear fits properly, without pressure-points or areas of friction. The patient will follow-up henceforth on an as-needed basis, and will be discharged as of today. Total time: 26 minutes
== END 2021-02-21 09:25 | disposition home or self-care (01) ==
LOC: WC 08:45
PROVIDERS: Referring Provider Surgery; Visit Provider Surgery
DX: Z09 Encounter for follow-up examination after completed treatment for conditions other than malignant neoplasm (principal); I87.2 Venous insufficiency (chronic) (peripheral); M79.89 Other specified soft tissue disorders; R60.0 Localized edema; R09.89 Other specified symptoms and signs involving the circulatory and respiratory systems; I11.0 Hypertensive heart disease with heart failure; I50.9 Heart failure, unspecified; J44.9 Chronic obstructive pulmonary disease, unspecified; G40.909 Epilepsy, unspecified, not intractable, without status epilepticus; E66.9 Obesity, unspecified; Z68.41 Body mass index [BMI] 40.0-44.9, adult; Z99.81 Dependence on supplemental oxygen; Z79.82 Long term (current) use of aspirin; Z79.899 Other long term (current) drug therapy; Z96.653 Presence of artificial knee joint, bilateral; Z87.891 Personal history of nicotine dependence
CPT/HCPCS: 99213; G0463